=== PATIENT | female | born 1950 | race Caucasian/White ===

== ENCOUNTER 2018-07-12 17:24 | Inpatient (IN) | payer OTHER ==
[2018-07-12] MEDS ORDERED: PANTOPRAZOLE 40 MG INJ ONE ×3 (19:09→22:37)
[2018-07-12] MEDS ORDERED: ONDANSETRON 4 MG/2 ML VIAL ONE (19:09)
--- NOTE | 2018-07-12 19:56 | RAD REPORT ---
EXAM DESCRIPTION: RAD - Chest Single View - 07/12/2018 7:33 pm CLINICAL HISTORY: epigastric pain Chest pain. COMPARISON: CHEST SINGLE VIEW dated 02/22/2011 FINDINGS: Portable technique limits examination quality. The lungs are grossly clear. The heart is normal in size. No displaced fractures.Aortic atheroscleros is. IMPRESSION: No acute intrathoracic process suspected.
[2018-07-12 20:16] LABS: Absolute Lymphocytes (CBC) 2.5 K/uL (0.7-4.9); Absolute Neutrophil 6.6 K/uL (1.8-8.0); Basophils % 0.7 % (0-1.3); Eosinophils % 0.4 % (0-4.4); Hematocrit 37.5 % (36.0-45.0); Lymphocytes % 24.6 % (15.3-44.8); MPV 9.1 fL (7.6-11.3); Monocytes % 9.9 % (3.3-12.3); RBC Red Blood Cell Count 4.39 M/uL (3.86-4.86)
[2018-07-12 20:20] LABS: ALT/SGPT 9 U/L (12-78); AST/SGOT 13 U/L (15-37); Albumin 3.5 g/dL (3.4-5.0); Alkaline Phosphatase 87 U/L (45-117); BUN Blood Urea Nitrogen 27 mg/dL (7-18); Bicarbonate 24 mmol/L (21-32); Bilirubin Direct < 0.1 mg/dL (0-0.2); Bilirubin Total 0.2 mg/dL (0.2-1.0); Glucose Level 97 mg/dL (74-106); Magnesium 2.2 mg/dL (1.8-2.4); Potassium 4.6 mmol/L (3.5-5.1); Protein, Total 7.1 g/dL (6.4-8.2); Sodium Level 145 mmol/L (136-145); Troponin (Emerg Dept Use Only) < 0.02 ng/mL (0.0-0.045)
[2018-07-12] MEDS ORDERED: NA CHLORIDE 0.9% 250 ML ONE (20:20)
[2018-07-12 21:30] LABS: Protime INR 1.19
[2018-07-12] MEDS ORDERED: MAGNE/ALUM HYDROXD 30 ML UCUP ONE (21:55)
[2018-07-12] MEDS ORDERED: LIDOCAINE VISCOUS 2% SOLN 15 ML UDC ONE (21:55)
[2018-07-12 21:56] LABS: Urine Blood NEGATIVE (NEG); Urine Glucose NEGATIVE (NEG); Urine Protein TRACE (NEG); Urine Specific Gravity 1.025 (1.005-1.030); Urine pH 5.5 (5.0-7.0)
[2018-07-12] MEDS ORDERED: HYDROCODONE/APAP 7.5/325 MG TAB ONE (21:59)
--- NOTE | 2018-07-12 22:00 | EDPHYS ---
Physician Documentation [facility] Name: Twyla Shook Age: 68 yrs Sex: Female : 1950 Arrival Date: 07/12/2018 Time: 17:27 Bed 26 Private MD: ED Physician Bill Contreras HPI: 07/12 18:55 This 68 yrs old Female presents to ER via Ambulatory with complaints of cp Bleeding Ulcers. 18:55 The patient presents to the emergency department with rectal bleeding, dark, tarry cp stool. 18:55 Onset: The symptoms/episode began/occurred today. Abdominal pain: described as achy, cp located in the epigastric area, right upper quadrant and left upper quadrant. Historical: - Allergies: 17:46 butorphanol tartrate; aa5 - PMHx: 17:46 Degenerative disc disease; Headaches; GI Bleed; aa5 - PSHx: 17:46 ; Hysterectomy; shoulder; aa5 - Immunization history:: Flu vaccine is not up to date. - Social history:: Smoking status: Patient/guardian denies using tobacco. - Ebola Screening: : No symptoms or risks identified at this time. ROS: 19:00 Constitutional: Negative for body aches, chills, fever, poor PO intake. cp 19:00 Eyes: Negative for injury, pain, redness, and discharge. cp 19:00 ENT: Negative for drainage from ear(s), ear pain, sore throat, difficulty swallowing, difficulty handling secretions. 19:00 Cardiovascular: Negative for chest pain, edema, palpitations. 19:00 Respiratory: Negative for cough, shortness of breath, wheezing. 19:00 Abdomen/GI: Positive for abdominal pain, black/tarry stool, Negative for vomiting, diarrhea, constipation. 19:00 : Negative for urinary symptoms, vaginal bleeding. 19:00 Neuro: Negative for altered mental status, headache, syncope, weakness. 19:00 All other systems are negative. Exam: 19:05 ECG was reviewed by the Attending Physician. cp 19:10 Constitutional: The patient appears in no acute distress, alert, awake, cp non-diaphoretic, non-toxic, well developed, well nourished. 19:10 Head/Face: Normocephalic, atraumatic. Eyes: Pupils equal round and reactive to light, cp extra-ocular motions intact. Lids and lashes normal. Conjunctiva and sclera are non-icteric and not injected. Cornea within normal limits. Periorbital areas with no swelling, redness, or edema. ENT: Nares patent. No nasal discharge, no septal abnormalities noted. Tympanic membranes are normal and external auditory canals are clear. Oropharynx with no redness, swelling, or masses, exudates, or evidence of obstruction, uvula midline. Mucous membranes moist. Chest/axilla: Normal chest wall appearance and motion. Nontender with no deformity. No lesions are appreciated. 19:10 Cardiovascular: Rate: normal, Rhythm: regular, Edema: is not appreciated, JVD: 19:10 Respiratory: the patient does not display signs of respiratory distress, Respirations: normal, no use of accessory muscles, no retractions, no splinting, no tachypnea, Breath sounds: are clear throughout, no decreased breath sounds, no stridor, no wheezing. 19:10 Abdomen/GI: Inspection: abdomen appears normal, Bowel sounds: active, all quadrants, Palpation: soft, in all quadrants, mild abdominal tenderness, in the epigastric area, Rectal exam: Stool: guaiac positive, black. 19:10 Back: pain, is absent, ROM is normal. 19:10 Skin: cellulitis, is not appreciated, no rash present. 19:10 Neuro: Orientation: to person, place \T\ time. Mentation: is normal, Cerebellar function: is grossly normal, Motor: moves all fours, strength is normal, Sensation: is normal. Vital Signs: 17:47 BP 139 / 79; Pulse 93; Resp 16 S; Temp 99.2(O); Pulse Ox 98% on R/A; Weight 58.97 kg aa5 (R); Height 4 ft. 9 in. (144.78 cm) (R); Pain 5/10; 19:05 BP 127 / 76; Pulse 85; Resp 22; Temp 97.8(O); Pulse Ox 99% on R/A; mh5 20:00 BP 135 / 70; Pulse 90; Resp 19; Pulse Ox 99% ; rr5 21:00 BP 145 / 79; Pulse 88; Resp 17; Pulse Ox 98% ; rr5 21:46 BP 150 / 92; Pulse 94; Resp 20; Pulse Ox 99% ; rr5 22:28 BP 113 / 61; Pulse 87; Resp 17; Temp 97.9; Pulse Ox 100% ; Pain 3/10; rr5 22:30 Pain 2/10; jb4 17:47 Body Mass Index 28.13 (58.97 kg, 144.78 cm) aa5 MDM: 18:35 Patient medically screened. cp 19:00 Differential diagnosis: gastritis, hemorrhagic shock, varices. cp 21:58 Data reviewed: vital signs, nurses notes, lab test result(s), EKG, radiologic studies, cp plain films. Test interpretation: by ED physician or midlevel provider: ECG, plain radiologic studies. Physician consultation: Roby Valencia MD was called at 21:55, was contacted at 21:55, regarding admission, to the medical/surgical unit. patient's condition, would like consultation with Dr. Morelos. 07/12 18:44 Order name: Basic Metabolic Panel; Complete Time: 20:38 cp 07/12 20:38 Interpretation: Normal except: CL 114; BUN 27. cp 07/12 18:44 Order name: CBC with Diff; Complete Time: 20:38 cp 07/12 18:44 Order name: LFT's; Complete Time: 20:38 cp 07/12 20:38 Interpretation: Normal except: AST 13; ALT 9; GLOB 3.6; A/G 1.0. cp 07/12 18:44 Order name: Magnesium; Complete Time: 20:38 cp 07/12 18:44 Order name: PT-INR; Complete Time: 21:57 cp 07/12 18:44 Order name: Troponin (emerg Dept Use Only); Complete Time: 20:38 cp 07/12 18:44 Order name: Type And Screen cp 07/12 18:44 Order name: Ptt, Activated; Complete Time: 21:57 cp 07/12 18:44 Order name: Type And Screen cp 07/12 19:19 Order name: XRAY Chest (1 view); Complete Time: 20:38 cp 07/12 21:09 Order name: Urine Dipstick--Ancillary (enter results); Complete Time: 21:57 cm6 07/12 18:44 Order name: EKG; Complete Time: 18:45 cp 07/12 18:44 Order name: Cardiac monitoring; Complete Time: 18:55 cp 07/12 18:44 Order name: EKG - Nurse/Tech; Complete Time: 18:55 cp 07/12 18:44 Order name: IV Saline Lock; Complete Time: 19:50 cp 04 18:44 Order name: Labs collected and sent; Complete Time: 19:50 cp 04 18:44 Order name: O2 Per Protocol; Complete Time: 18:56 cp 07/12 18:44 Order name: O2 Sat Monitoring; Complete Time: 18:56 cp EC:05 Rate is 81 beats/min. Rhythm is regular. UT interval is normal. QRS interval is normal. cp QT interval is normal. T waves are Flattened in lead III. Interpreted by me. Reviewed by me. Administered Medications: 19:35 Drug: Zofran 4 mg Route: IVP; Site: right forearm; rr5 22:25 Follow up: Response: No adverse reaction rr5 19:37 Drug: ProTONIX 40 mg Route: IVP; Site: right forearm; rr5 22:25 Follow up: Response: No adverse reaction rr5 20:10 Drug: ProTONIX 8 mg/hr Route: IV; Rate: 25 ml/hr; Site: right forearm; rr5 22:24 Follow up: Response: No adverse reaction; IV Status: Infusion continued upon admission; rr5 IV Intake: 75ml 21:45 Drug: GI Cocktail without - (Maalox Suspension 30 ml, Lidocaine Liquid 2 % 15 rr5 ml) Route: PO; 22:25 Follow up: Response: No adverse reaction rr5 21:49 Drug: [place] (7.5 mg-325 mg) 1 tabs Route: PO; jb4 22:30 Follow up: Pain 2/10 Adult; Response: No adverse reaction; Pain is decreased jb4 22:30 Drug: ProTONIX 40 mg Route: IVP; Site: right antecubital; jb4 23:18 Follow up: Response: No adverse reaction jb4 Disposition: 07/12/18 22:00 Hospitalization ordered by Roby Valencia for Inpatient Admission. Preliminary diagnosis is Gastrointestinal hemorrhage, unspecified. - Bed requested for Telemetry/MedSurg (Inpatient). - Status is Inpatient Admission. jb4 - Condition is Stable. - Problem is new. - Symptoms have improved. UTI on Admission? No Addendum: 07/16/2018 07:00 Co-signature as Attending Physician, Bill Contreras MD. r n Signatures: Dispatcher [employer] EDMS Bill Contreras MD MD rn Calderon, Audri, RN RN aa5 Brenden Vickers PA PA cp Josey Arteaga, MARIA INES RN cg Wesley Hernandez, MARIA INES RN jb4 Ronak Nails RN RN rr5 Corrections: (The following items were deleted from the chart) 07/12 22:01 22:00 Hospitalization Ordered by Roby Valencia MD for Inpatient Admission. Preliminary cg diagnosis is Gastrointestinal hemorrhage, unspecified. Bed requested for Telemetry/MedSurg (Inpatient). Status is Inpatient Admission. Condition is Stable. Problem is new. Symptoms have improved. UTI on Admission? No. cp 23:18 22:01 07/12/2018 22:00 Hospitalization Ordered by Roby Valencia MD for Inpatient jb4 Admission. Preliminary diagnosis is Gastrointestinal hemorrhage, unspecified. Bed requested for Telemetry/MedSurg (Inpatient). Status is Inpatient Admission. Condition is Stable. Problem is new. Symptoms have improved. UTI on Admission? No. cg
--- NOTE | 2018-07-12 22:00 | ER ---
Nurse's Notes [facility] Name: Twyla Shook Age: 68 yrs Sex: Female : 1950 Arrival Date: 07/12/2018 Time: 17:27 Bed 26 Private MD: Diagnosis: Gastrointestinal hemorrhage, unspecified Presentation: 07/12 17:45 Presenting complaint: Patient states: black stools that began yesterday. Pt reports aa5 generalized weakness that began 1 week ago. Pt states "I feel nauseated and has not eaten much but I have not vomited since last week". Transition of care: patient was not received from another setting of care. Onset of symptoms was July 2018. Risk Assessment: Do you want to hurt yourself or someone else? Patient reports no desire to harm self or others. Initial Sepsis Screen: Does the patient meet any 2 criteria? No. Patient's initial sepsis screen is negative. Does the patient have a suspected source of infection? No. Patient's initial sepsis screen is negative. Care prior to arrival: None. 17:45 Method Of Arrival: Ambulatory aa5 17:45 Acuity: LEE 3 aa5 Historical: - Allergies: 17:46 butorphanol tartrate; aa5 - PMHx: 17:46 Degenerative disc disease; Headaches; GI Bleed; aa5 - PSHx: 17:46 ; Hysterectomy; shoulder; aa5 - Immunization history:: Flu vaccine is not up to date. - Social history:: Smoking status: Patient/guardian denies using tobacco. - Ebola Screening: : No symptoms or risks identified at this time. Screenin:19 Abuse screen: Denies threats or abuse. Denies injuries from another. Nutritional ph screening: No deficits noted. Tuberculosis screening: No symptoms or risk factors identified. Fall Risk None identified. Assessment: 19:00 General: Appears in no apparent distress. comfortable, Behavior is calm, cooperative, rr5 appropriate for age. 19:00 Pain: Complains of pain in back Pain does not radiate. Pain currently is 5 out of 10 on rr5 a pain scale. Quality of pain is described as aching, Pain began gradually, Is intermittent. Neuro: Level of Consciousness is awake, alert, obeys commands, Oriented to person, place, time, situation, Appropriate for age. Cardiovascular: Capillary refill < 3 seconds Patient's skin is warm and dry. Respiratory: Airway is patent Respiratory effort is even, unlabored, Respiratory pattern is regular, symmetrical. GI: Abdomen is round Reports black stool. : No signs and/or symptoms were reported regarding the genitourinary system. EENT: No signs and/or symptoms were reported regarding the EENT system. Derm: Skin is intact, Skin temperature is warm. Musculoskeletal: Circulation, motion, and sensation intact. Capillary refill < 3 seconds, Range of motion: intact in all extremities. 20:00 Reassessment: Patient appears in no apparent distress at this time. Patient is alert, rr5 oriented x 3, equal unlabored respirations, skin warm/dry/pink. Patient states symptoms have improved. 21:00 Reassessment: Patient appears in no apparent distress at this time. Patient is alert, rr5 oriented x 3, equal unlabored respirations, skin warm/dry/pink. awaiting for result.no complaints made. 21:30 Reassessment: Patient appears in no apparent distress at this time. Patient is alert, rr5 oriented x 3, equal unlabored respirations, skin warm/dry/pink. complaining of low back pain. ED provider aware with order made na d carried out. 22:30 Reassessment: Patient appears in no apparent distress at this time. Patient and/or jb4 family updated on plan of care and expected duration. Pain level reassessed. Patient is alert, oriented x 3, equal unlabored respirations, skin warm/dry/pink. Vital Signs: 17:47 BP 139 / 79; Pulse 93; Resp 16 S; Temp 99.2(O); Pulse Ox 98% on R/A; Weight 58.97 kg aa5 (R); Height 4 ft. 9 in. (144.78 cm) (R); Pain 5/10; 19:05 BP 127 / 76; Pulse 85; Resp 22; Temp 97.8(O); Pulse Ox 99% on R/A; mh5 20:00 BP 135 / 70; Pulse 90; Resp 19; Pulse Ox 99% ; rr5 21:00 BP 145 / 79; Pulse 88; Resp 17; Pulse Ox 98% ; rr5 21:46 BP 150 / 92; Pulse 94; Resp 20; Pulse Ox 99% ; rr5 22:28 BP 113 / 61; Pulse 87; Resp 17; Temp 97.9; Pulse Ox 100% ; Pain 3/10; rr5 22:30 Pain 2/10; jb4 17:47 Body Mass Index 28.13 (58.97 kg, 144.78 cm) aa5 ED Course: 17:27 Patient arrived in ED. rg4 17:45 Arm band placed on. aa5 17:46 Triage completed. aa5 18:35 Brenden Vickers PA is PHCP. cp 18:35 Bill Contreras MD is Attending Physician. cp 19:04 Patient has correct armband on for positive identification. Placed in gown. Bed in low mh5 position. Call light in reach. Side rails up X 1. Adult w/ patient. Warm blanket given. front desk monitor on. Pulse ox on. NIBP on. 19:04 EKG done, by ED staff, reviewed by Brenden ZHANG. mh5 19:14 Ronak Nails, RN is Primary Nurse. rr5 19:19 Served as a director of architecture during rectal exam. ph 19:32 X-ray completed. Portable x-ray completed in exam room. Patient tolerated procedure ml well. 19:32 XRAY Chest (1 view) In Process Unspecified. EDMS 19:35 Inserted saline lock: 18 gauge in right forearm, using aseptic technique. Blood rr5 collected. 21:59 Roby Valencia MD is Hospitalizing Provider. cp 22:52 Patient admitted, IV remains in place. jb4 Administered Medications: 19:35 Drug: Zofran 4 mg Route: IVP; Site: right forearm; rr5 22:25 Follow up: Response: No adverse reaction rr5 19:37 Drug: ProTONIX 40 mg Route: IVP; Site: right forearm; rr5 22:25 Follow up: Response: No adverse reaction rr5 20:10 Drug: ProTONIX 8 mg/hr Route: IV; Rate: 25 ml/hr; Site: right forearm; rr5 22:24 Follow up: Response: No adverse reaction; IV Status: Infusion continued upon admission; rr5 IV Intake: 75ml 21:45 Drug: GI Cocktail without - (Maalox Suspension 30 ml, Lidocaine Liquid 2 % 15 rr5 ml) Route: PO; 22:25 Follow up: Response: No adverse reaction rr5 21:49 Drug: [place] (7.5 mg-325 mg) 1 tabs Route: PO; jb4 22:30 Follow up: Pain 2/10 Adult; Response: No adverse reaction; Pain is decreased jb4 22:30 Drug: ProTONIX 40 mg Route: IVP; Site: right antecubital; jb4 23:18 Follow up: Response: No adverse reaction jb4 Intake: 22:24 IV: 75ml; Total: 75ml. rr5 Outcome: 22:00 Decision to Hospitalize by Provider. cp 22:51 Admitted to Tele accompanied by tech, via stretcher, room 406, with chart, Report jb4 called to MARIA INES Carter 22:51 Condition: stable 22:51 Discharge instructions given to patient, Instructed on the need for admit, Demonstrated understanding of instructions. 23:18 Patient left the ED. jb4 Signatures: Dispatcher [employer] Muriel Hernandez Audri, RN RN aa5 Radha Celestin, RN RN Brenden Odom PA PA cp Garcia, Rubi rg4 Wesley Hernandez RN RN jb4 Fatemeh Chappell [facility] Ronak Nails, RN RN rr5
--- NOTE | 2018-07-12 22:02 | P.HP ---
Certification for Inpatient Patient admitted to: Inpatient With expected LOS: >2 Midnights Practitioner: I am a practitioner with admitting privileges, knowledge of patient current condition, hospital course, and medical plan of care. Services: Services provided to patient in accordance with Admission requirements found in Title 42 Section 412.3 of the Code of Federal Regulations Patient History Date of Service: 07/12/18 Reason for admission: GIB History of Present Illness: Ms Shook is a 68 years old woman with history of GIB in 2010, headache, DJD on chronic pain medication who has been feeling weak for the last week. She was also dizzy and nauseated. Today, she start having dark stools and abdominal pain. She states that her symptoms were similar to previous GIB. The patient says as well that has been taking several times a day BC powder (Aspirin) due to her pain. At arrival her BP was 139/79 HR 93. Lab work shows Hgb 12.2 normal WBC count. BUN slightly elevated. Rectal exam showed dark stools guaiac positive. Allergies butorphanol tartrate [From Stadol] Allergy (Intermediate, Verified 08/26/12 23: 04) Rash Home medications list reviewed: Yes - Past Medical/Surgical History -: GIB -: DJD -: headache -: -: Hysterectomy - Family History Family History: Reviewed- Non-Contributory - Social History Smoking Status: Never smoker Alcohol use: Yes CD- Drugs: No Place of Residence: Home Review of Systems 10-point ROS is otherwise unremarkable Physical Examination - Physical Exam General: Alert, In no apparent distress HEENT: Atraumatic, PERRLA, Mucous membr. moist/pink, EOMI, Sclerae nonicteric Neck: Supple, 2+ carotid pulse no bruit, No LAD, Without JVD or thyroid abnormality Respiratory: Clear to auscultation bilaterally, Normal air movement Cardiovascular: Regular rate/rhythm, Normal S1 S2 Gastrointestinal: Normal bowel sounds, Tenderness (mild diffuse tenderness to palpation.) Musculoskeletal: No tenderness Integumentary: No rashes Neurological: Normal speech, Normal strength at 5/5 x4 extr, Normal tone, Normal affect Lymphatics: No axilla or inguinal lymphadenopathy - Studies Laboratory Data (last 24 hrs) 07/12/18 19:35: PT 14.0 H, INR 1.19, APTT 37.6 H 07/12/18 19:35: WBC 10.3, Hgb 12.2, Hct 37.5, Plt Count 411 H 07/12/18 19:35: Sodium 145, Potassium 4.6, BUN 27 H, Creatinine 0.66, Glucose 97 , Magnesium 2.2, Total Bilirubin 0.2, AST 13 L, ALT 9 L, Alkaline Phosphatase 87 Assessment and Plan - Problems (Diagnosis) (1) Gastrointestinal bleed Current Visit: Yes Status: Acute Qualifiers: GI bleed type/associated pathology: melena Qualified Code(s): K92.1 - Melena (2) Chronic pain Current Visit: Yes Status: Acute Qualifiers: Chronic pain type: chronic pain syndrome Qualified Code(s): G89.4 - Chronic pain syndrome - Plan The patient will be admitted to the hospital due to melena, consistent with upper GIB. She is hemodynamically stable. Will order NPO, IV fluids, Protonix drip. The case was discussed with Dr Morelos, who will see the patient in AM. - Advance Directives Does patient have a Living Will: No Does patient have a Durable POA for Healthcare: No - Code Status/Comfort Care Code Status Assessed: Yes Code Status: Full Code
[2018-07-12] MEDS ORDERED: PANTOPRAZOLE INJ 80 MG in NA CHLORIDE 0.9% 250 ML IV SCH (23:25)
[2018-07-12 23:29] VITALS: O2SAT 100
[2018-07-13 01:21] VITALS: BMI 27.3
[2018-07-13] MEDS: NA CHLORIDE 0.9% 1,000 ML IV SCH ×4 (02:29→19:25)
[2018-07-13] MEDS: MORPHINE 2 MG/ML SYR IV PRN ×4 (05:52→22:01)
[2018-07-13 06:18] LABS: Absolute Lymphocytes (CBC) 1.8 K/uL (0.7-4.9); Absolute Monocytes 0.6 K/uL (0.1-1.3); Basophils % 0.9 % (0-1.3); Eosinophils % 0.5 % (0-4.4); Hematocrit 32.4 % (36.0-45.0); Monocytes % 7.6 % (3.3-12.3); RBC Red Blood Cell Count 3.83 M/uL (3.86-4.86)
[2018-07-13 06:32] LABS: ALT/SGPT 10 U/L (12-78); AST/SGOT 11 U/L (15-37); Albumin 3.1 g/dL (3.4-5.0); Alkaline Phosphatase 72 U/L (45-117); BUN Blood Urea Nitrogen 29 mg/dL (7-18); Bicarbonate 25 mmol/L (21-32); Bilirubin Total 0.3 mg/dL (0.2-1.0); Glucose Level 112 mg/dL (74-106); Potassium 3.5 mmol/L (3.5-5.1); Protein, Total 6.4 g/dL (6.4-8.2); Sodium Level 144 mmol/L (136-145)
[2018-07-13] MEDS ORDERED: PANTOPRAZOLE 40 MG INJ ONE (06:41)
[2018-07-13] MEDS ORDERED: NA CHLORIDE 0.9% 250 ML ONE (06:42)
[2018-07-13] MEDS ORDERED: PNEUMOCOCCAL VACCINE 0.5 ML IMVAC ONE (08:00)
[2018-07-13] MEDS: ONDANSETRON 4 MG/2 ML VIAL IV PRN ×2 (09:25→22:06)
[2018-07-13] MEDS: PROMETHAZINE 25 MG/ML VIAL IV PRN ×2 (10:39→18:23)
[2018-07-13 12:11] LABS: Hematocrit 29.2 % (36.0-45.0)
[2018-07-13] MEDS ORDERED: PROPOFOL 200 MG/20 ML VIAL IV ONE (14:31)
[2018-07-13] MEDS ORDERED: LIDOCAINE 1% MPF 5 ML VIAL ONE (14:32)
--- NOTE | 2018-07-13 14:42 | P.PN ---
Subjective Date of Service: 07/13/18 Primary Care Provider: Dr. Benítez([place], [place]); Pain-Dr. Santana Chief Complaint: GIB Subjective: Other (Patient stable this time. No significant vomiting. Patient NPO for possible endoscopy) Physical Examination - Vital Signs Temperature: 98.5 F Blood Pressure: 130/79 Pulse: 122 Respirations: 24 Pulse Ox (%): 98 - Physical Exam General: Alert, In no apparent distress, Oriented x3, Cooperative HEENT: Atraumatic Neck: Supple Respiratory: Clear to auscultation bilaterally, Normal air movement Cardiovascular: Normal pulses, Regular rate/rhythm Gastrointestinal: Normal bowel sounds, Soft and benign, Non-distended Musculoskeletal: No tenderness, No warmth Integumentary: No erythema, No warmth, No cyanosis Neurological: Normal speech, Normal strength at 5/5 x4 extr, Normal tone, Normal affect - Studies Laboratory Data (last 24 hrs) 07/12/18 19:35: PT 14.0 H, INR 1.19, APTT 37.6 H 07/12/18 19:35: WBC 10.3, Hgb 12.2, Hct 37.5, Plt Count 411 H 07/12/18 19:35: Sodium 145, Potassium 4.6, BUN 27 H, Creatinine 0.66, Glucose 97 , Magnesium 2.2, Total Bilirubin 0.2, AST 13 L, ALT 9 L, Alkaline Phosphatase 87 Medications List Reviewed: Yes Assessment & Plan Discharge Plan: Home Plan to discharge in: 48 Hours Physician Review Additional Text: Impression: Melena suspect upper GI bleed with acute anemia Chronic pain Plan: Melena suspect upper GI bleed with acute anemia: Patient remains NPO for endoscopy. GI consulted. Will need to monitor hemoglobin closely. Patient may require blood transfusion if hemoglobin drops significantly. Will continue to monitor and reassess. Await findings from endoscopy. Will provide SCD for DVT prophylaxis. Chronic pain: Patient takes nonsteroidal anti-inflammatory for pain. This will need to be discontinued due to upper GI bleed. Patient also sees pain management. Will continue her other home medication once GI bleed it is stabilize. Time Spent Managing Pts Care (In Minutes): 55
[2018-07-13] MEDS ORDERED: Ringers Lactate 1,000 ML IV ONE (15:18)
--- NOTE | 2018-07-13 15:44 | ENDO RPT ---
[address], [address] EGD PROCEDURE REPORT EXAM DATE: 07/13/2018 PATIENT NAME: Twyla Shook MR#: [id number] BIRTHDATE: 1950 ATTENDING: Marc Morelos Dr STATUS: inpatient - 7 MOTOR BLOCK MECHANIC: Yamileth Capps INDICATIONS: The patient is a 68 yr old Female here for an EGD due to melenic bleeding, hematemesis, and anemia (takes 1-2 BC powders per day for headaches) PROCEDURE PERFORMED: EGD for control of bleeding MEDICATIONS: Per Anesthesia. TOPICAL ANESTHETIC: none CONSENT: The patient understands the risks and benefits of the procedure and understands that these risks include, but are not limited to: sedation, allergic reaction, infection, perforation and/or bleeding. Alternative means of evaluation and treatment include, among others: physical exam, x-rays, and/or surgical intervention. The patient elects to proceed with this endoscopic procedure. DESCRIPTION OF PROCEDURE: During intra-op preparation period all mechanical medical equipment was checked for proper function. Hand hygiene and appropriate measures for infection prevention was taken. Procedure, possible complications, and alternatives including but not limited to the possibility of bleeding, perforation, tear, infection, sepsis, need for surgery, need for blood transfusion, and anesthesia related complications were explained to the patient. After the risks, benefits and alternatives of the procedure were thoroughly explained, Informed consent was verified, confirmed and timeout was successfully executed by the treatment team. The patient was placed in the left lateral position. The patient was anesthetized with topical anesthesia. Through the anesthetized oropharyngeal area, the scope was passed without any difficulty. The Pentax EG-[id number] ([id number]) endoscope was introduced through the mouth and advanced to the second portion of the duodenum. Retroflexed views revealed a small hiatal hernia. The gastroscope was then slowly withdrawn and removed. Multiple (5) ulcers were found in the bulb of the duodenum. Sclerotherapy was performed with absolute alcohol injection. A small hiatal hernia was found Blood was found in the total stomach. Blood was found in the bulb and descending duodenum. ADVERSE EVENTS: There were no complications. IMPRESSIONS: 1. Multiple (5) large 7-12 mm ulcers (one at the apex with slow bleeding, s/p 4 cc Epinephrine 1:10,000 with control of bleeding - not amenable to endoclip therapy) in the bulb of the duodenum 2. Small hiatal hernia 3. Blood with blood clots in the total stomach 4. Blood in the bulb and descending duodenum RECOMMENDATIONS: 1. acid suppression therapy 2. avoid NSAIDS 3. ICU monitoring 4. surgery consult REPEAT EXAM: Marc Morelos Dr eSigned: Marc Morelos Dr 07/13/2018 3:44 PM cc: Sam Staton CPT CODES: ICD9 CODES: PATIENT NAME: Twyla Shook MR#: [id number]
[2018-07-13] MEDS ORDERED: ONDANSETRON 4 MG/2 ML VIAL ONE (15:50)
[2018-07-13] MEDS ORDERED: FENTANYL CITR 100 MCG/2 ML ONE (15:57)
[2018-07-13] MEDS ORDERED: EPINEPHRINE/PF 1 MG/ML AMP ONE (16:41)
[2018-07-13] MEDS: PANTOPRAZOLE INJ 80 MG in NA CHLORIDE 0.9% 250 ML IV SCH (17:20)
[2018-07-13] MEDS ORDERED: CEFTRIAXONE/SWI 1gm 1 GM/10 ML SYR IVP SCH (18:30)
--- NOTE | 2018-07-13 22:14 | P.DS ---
Admission Date: 07/12/18 Discharge Date: 07/13/18 Primary Care Provider: Dr. Benítez([place], [place]); Pain-Dr. Santana Disposition: TRANSFER TO [facility] Discharge Condition: FAIR Reason for Admission: GIB - Problems (1) Gastrointestinal bleed Current Visit: Yes Status: Acute Qualifiers: GI bleed type/associated pathology: melena Qualified Code(s): K92.1 - Melena (2) Chronic pain Current Visit: Yes Status: Acute Qualifiers: Chronic pain type: chronic pain syndrome Qualified Code(s): G89.4 - Chronic pain syndrome Brief History of Present Illness: Ms Shook is a 68 years old woman with history of GIB in 2010, headache, DJD on chronic pain medication who has been feeling weak for the last week. She was also dizzy and nauseated. Today, she start having dark stools and abdominal pain. She states that her symptoms were similar to previous GIB. The patient says as well that has been taking several times a day BC powder (Aspirin) due to her pain. At arrival her BP was 139/79 HR 93. Lab work shows Hgb 12.2 normal WBC count. BUN slightly elevated. Rectal exam showed dark stools guaiac positive. Hospital Course: The patient was admitted to the hospital and kept NPO, started IV fluids and continuous infusion of PPI's. She remain hemodynamically stable. This AM, Dr Morelos (GI) performed an EGD, it was remarkable for 5 duodenal ulcers, some of them with evidence of slow and active bleeding. Schlerotherapy was performed but no endoclip. The patient was also evaluated by Dr Chappell (surgeon) due to high re-bleeding risk. Dr Chappell has recommended to transfer the patient to a tertiary facility for angio-embolization by IR. The patient has been accepted at [facility]. The patient received a total of 2 Units of PRBC's after EGD. She remain hemodynamically stable the whole admission. She is currently in stable condition to be transferred tonight. Vital Signs/Physical Exam: Temp Pulse Resp BP Pulse Ox 100.4 F 91 H 17 148/80 H 100 07/13/18 20:00 07/13/18 21:00 07/13/18 21:00 07/13/18 21:00 07/13/18 21:00 General: Alert, In no apparent distress HEENT: Atraumatic, PERRLA, EOMI Neck: Supple, JVD not distended Respiratory: Clear to auscultation bilaterally, Normal air movement Cardiovascular: Normal S1 S2, No gallops Gastrointestinal: Normal bowel sounds, No tenderness Musculoskeletal: No tenderness Integumentary: No rashes Neurological: Normal speech, Normal tone, Normal affect Lymphatics: No axilla or inguinal lymphadenopathy Laboratory Data at Discharge: WBC 8.5 K/uL (4.3-10.9) D 07/13/18 05:40 Hgb 10.8 g/dL (12.0-15.0) L 07/13/18 18:50 Hct 33.0 % (36.0-45.0) L 07/13/18 18:50 Plt Count 399 K/uL (152-406) 07/13/18 05:40 PT 14.0 SECONDS (9.5-12.5) H 07/12/18 19:35 INR 1.19 07/12/18 19:35 APTT 37.6 SECONDS (24.3-36.9) H 07/12/18 19:35 Sodium 144 mmol/L (136-145) 07/13/18 05:40 Potassium 3.5 mmol/L (3.5-5.1) 07/13/18 05:40 BUN 29 mg/dL (7-18) H 07/13/18 05:40 Creatinine 0.60 mg/dL (0.55-1.3) 07/13/18 05:40 Glucose 112 mg/dL (74-106) H 07/13/18 05:40 Magnesium 2.2 mg/dL (1.8-2.4) 07/12/18 19:35 Total Bilirubin 0.3 mg/dL (0.2-1.0) 07/13/18 05:40 AST 11 U/L (15-37) L 07/13/18 05:40 ALT 10 U/L (12-78) L 07/13/18 05:40 Alkaline Phosphatase 72 U/L (45-117) 07/13/18 05:40 Home Medications: Duloxetine HCl 60 mg PO DAILY 07/13/18 Hydrocodone 10/APAP 325 [[place] 10/325*] 1 tab PO TIDP PRN 07/13/18 Pregabalin [Lyrica*] 50 mg PO TID 07/13/18 Tizanidine [Zanaflex*] 4 mg PO Q12HR 07/13/18 Trazodone [Desyrel*] 100 mg PO BEDTIME 07/13/18 traMADol HCL [Ultram*] 50 mg PO Q12HP PRN 07/13/18 Diet: NPO Activity: Bedrest Time spent managing pt's care (in minutes): 80
[2018-07-13 23:25] LABS: Hematocrit 30.7 % (36.0-45.0)
[2018-07-14 00:12] VITALS: TEMP 99
--- NOTE | 2018-07-14 00:30 | CON ---
Date of Consultation: 07/13/2018 Diagnosis: GI bleed. History Of Present Illness: This is the case of a 68-year-old patient, admitted yesterday to the ICU after having complains of week, dizziness, and nausea. The patient has been having dark stools and abdominal pain. She has a similar episode several years ago. They found 4 ulcers. The patient has a history of chronic pain, so she takes a Vicodin and BC Powder, aspirin. The patient was admitted t o the hospital today this afternoon. She had a GI scope by Dr. Morelos, who called me and told me ángela t he found 4 ulcers in the duodenum. He was able to cauterize them, but no clips. Past Medical History: GI bleed with duodenal ulcers. Surgical History: Includes C-sections x3, hysterectomy. Social History: She does not smoke. She drinks alcohol occasionally. Family History: Noncontributory. Review of Systems: Ten points otherwise unremarkable. Physical Examination: General: The patient is awake and alert. HEENT: Pupils are equal and reactive, anicteric. Neck: Supple. Chest: Clear. Abdomen: Soft and depressible. No guarding or rebound. A midline incision from previous surgeries. Extremities: Good capillary refill. Laboratory Data: Blood work shows hemoglobin of 9.3 with hematocrit 29.2. Yesterday in morning, she had hemoglobin of 10.8 and 32.2. I understand that she got 2 units of blood transfusion. INR is 1. 19. Creatinine is 0.6. BUN is 29. Total bilirubin of 0.3. UA; nitrite negative. Assessment: A 68-year-old patient with a GI bleed, today had endoscopy done with an epinephrine inje cted. Dr. Morelos explained to me he could not put the clips in that area. The patient was brought t o the ICU. Currently, she is hemodynamically stable. I explained to the patient and the patient's f amily the different alternatives that we have for this disease. She was in the past on a medication for ulcers, but she stopped taking any a long time ago as per family. I explained to him and the [facility] doctor, Dr. Staton, the options of embolotherapy. That is as an alternative from just GI clips or cauterization or injection and surgery. I believe we should take advantage of this window of oppo rtunity that she stopped bleeding, she has had endoscopy, she has better hemoglobin, and there is no active GI bleed at least from vomiting and hematemesis or any GI bleed from below active, but we have to take that window to take this patient to a tertiary center higher level of care, where she can marsh ve the option of angiography and possible incision. The surgical options of emergent laparotomy, pos sible resection, and control of the GI bleeding were discussed with the patient with benefits, altern atives, and risks including, but not limited to infection, bleeding, damage to adjacent structures, a nesthesia complication, inability to control the bleeding, CO, even . She also understands even any bleeding is controlled, she still have to look for help to control these chronic ulcers, change in diet, and also alcohol use, and follow recommendations by her GI doctor. Dr. Staton just initiate d the call for transfer at this moment looking for the options that may include an emerging transcath eter arterial embolization if needed. TONY/JEANETTE Voice ID: [id number] Report ID: [id number]
[2018-07-14 01:07] VITALS: BP 137/92
[2018-07-14] MEDS: PANTOPRAZOLE INJ 80 MG in NA CHLORIDE 0.9% 250 ML IV SCH (01:10)
--- NOTE | 2018-07-17 11:24 | EKG ---
Test Date: 2018-07-12 Test Time: 18:57:13 Steward/Stewardess: ZEESHAN MEASUREMENT RESULTS: Intervals: Rate: 81 VA: 142 QRSD: 76 QT: 364 QTc: 422 Newton: P: 51 VA: 142 QRS: -16 T: 26 INTERPRETIVE STATEMENTS: Normal sinus rhythm Normal ECG Compared to ECG 02/22/2011 16:02:26 No significant changes Electronically Signed On 07-13-18 09:52:07 CDT by Reuben Dewitt
== END 2018-07-14 01:20 | disposition short-term general hospital (02) | DRG 379 ==
LOC: ER 17:24 → ERHOLD 22:17 → 4TH 22:52 → 3RD-ICU 07-13 16:43
PROVIDERS: ADMIT Internal Medicine; ATTEND Family Medicine
PROC: 30233N1 Transfusion of Nonautologous Red Blood Cells into Peripheral Vein, Percutaneous Approach (ICD-10-PCS; 2018-07-13)
PROC: 3E0G8TZ Introduction of Destructive Agent into Upper GI, Via Natural or Artificial Opening Endoscopic (ICD-10-PCS; principal; 2018-07-13 14:00)
DX: K26.0 Acute duodenal ulcer with hemorrhage (principal); K92.1 Melena; G89.4 Chronic pain syndrome; K44.9 Diaphragmatic hernia without obstruction or gangrene; D64.9 Anemia, unspecified; M19.90 Unspecified osteoarthritis, unspecified site; R51 Headache
CPT/HCPCS: 36415; 71045; 80048; 80053; 80076; 81003; 83735; 84484; 85014; 85018; 85025; 85610; 85730; 86850; 86900; 86901; 93005; 99285; C9113; J0171; J0696; J2270; J2405; J2550; J2704; J3010; J7030; P9016

== ENCOUNTER 2018-07-19 00:29 | Inpatient (IN) | payer OTHER ==
--- OUTSIDE RECORDS SUMMARY | 2018-07-19 00:32 | XMS REPORT ---
:1950 [facility] Address [address] [place] [address] Dr. Craven[address] [place] [id number] Care Team Providers Name Role Phone Unavailable Unavailable Unavailable Problems This patient has no known problems. Allergies, Adverse Reactions, Alerts This patient has no known allergies or adverse reactions. Medications This patient has no known medications.
[2018-07-19] MEDS ORDERED: MORPHINE 2 MG/ML SYR ONE ×2 (01:42→02:20)
[2018-07-19] MEDS ORDERED: FAMOTIDINE 20 MG/2 ML VIAL IV ONE (01:42)
[2018-07-19] MEDS ORDERED: ONDANSETRON 4 MG/2 ML VIAL ONE ×2 (01:42→03:44)
[2018-07-19] MEDS ORDERED: NA CHLORIDE 0.9% 1,000 ML ONE (01:42)
[2018-07-19 01:45] LABS: Absolute Lymphocytes (CBC) 1.4 K/uL (0.7-4.9); Absolute Monocytes 1.8 K/uL (0.1-1.3); Absolute Neutrophil 14.1 K/uL (1.8-8.0); Basophils % 0.6 % (0-1.3); Hematocrit 33.1 % (36.0-45.0); Lymphocytes % 8.2 % (15.3-44.8); MPV 9.4 fL (7.6-11.3); Monocytes % 10.5 % (3.3-12.3); RBC Red Blood Cell Count 3.81 M/uL (3.86-4.86)
[2018-07-19 01:49] LABS: Protime INR 1.19
[2018-07-19 02:05] LABS: ALT/SGPT 9 U/L (12-78); AST/SGOT 13 U/L (15-37); Albumin 3.1 g/dL (3.4-5.0); Alkaline Phosphatase 101 U/L (45-117); BUN Blood Urea Nitrogen 10 mg/dL (7-18); Bicarbonate 23 mmol/L (21-32); Bilirubin Direct 0.1 mg/dL (0-0.2); Bilirubin Total 0.6 mg/dL (0.2-1.0); Glucose Level 124 mg/dL (74-106); Lipase 68 U/L (73-393); Magnesium 2.1 mg/dL (1.8-2.4); NT PRO-BNP 207 pg/mL (<125); Potassium 4.1 mmol/L (3.5-5.1); Protein, Total 6.8 g/dL (6.4-8.2); Sodium Level 138 mmol/L (136-145); Troponin (Emerg Dept Use Only) < 0.02 ng/mL (0.0-0.045)
[2018-07-19] MEDS ORDERED: VANCOMYCIN 1 GM/VIAL ONE (02:31)
[2018-07-19] MEDS ORDERED: NA CHLORIDE 0.9% 250 ML ONE (02:31)
--- NOTE | 2018-07-19 03:20 | ER ---
Nurse's Notes [facility] Name: Twyla Shook Age: 68 yrs Sex: Female : 1950 Arrival Date: 07/19/2018 Time: 00:30 Bed 23 Private MD: Diagnosis: Phlebitis and thrombophlebitis-superficial upper ext veins;Cellulitis and acute lymphangitis of other parts of limb-left forearm;Anemia, unspecified;Elevated white blood cell count Presentation: 07/19 00:40 Presenting complaint: Patient states: She had IV's in her left arm from hospitalization lp1 on Monday, discharged yesterday and pain to left arm worsening since then; redness, tenderness noted to left AC area. Transition of care: patient was not received from another setting of care. Onset of symptoms was July 19, 2018. Risk Assessment: Do you want to hurt yourself or someone else? Patient reports no desire to harm self or others. Initial Sepsis Screen: Does the patient meet any 2 criteria? No. Patient's initial sepsis screen is negative. Does the patient have a suspected source of infection? No. Patient's initial sepsis screen is negative. Care prior to arrival: None. 00:40 Method Of Arrival: Wheelchair lp1 00:40 Acuity: LEE 3 lp1 Historical: - Allergies: 00:43 butorphanol tartrate; lp1 00:43 Stadol; lp1 - Home Meds: 00:43 Lyrica 50 mg Oral 1 cap [Active]; duloxetine 60 mg Oral cpDR 1 cap once daily [Active]; lp1 trazodone 100 mg Oral tab 1 tab 3 times per day [Active]; tizanidine 4 mg Oral cap 1 cap 3 times per day [Active]; Walnut 10-325 mg Oral tab 1 tab every 8 hrs [Active]; - PMHx: 00:43 Degenerative disc disease; GI Bleed; Headaches; lp1 - PSHx: 00:43 ; Hysterectomy; foot surgery; shoulder surgery; neck surgery; lp1 - Immunization history:: Adult Immunizations up to date. - Social history:: Smoking status: Patient/guardian denies using tobacco. - Ebola Screening: : No symptoms or risks identified at this time. - Family history:: not pertinent. Screenin:43 Abuse screen: Denies threats or abuse. Denies injuries from another. Nutritional lp1 screening: No deficits noted. Tuberculosis screening: No symptoms or risk factors identified. 00:46 Fall Risk None identified. ca1 Assessment: 00:46 General: Appears in no apparent distress. uncomfortable, Behavior is calm, cooperative, ca1 appropriate for age. Pain: Complains of pain in left arm Pain does not radiate. Pain currently is 10 out of 10 on a pain scale. Quality of pain is described as stabbing, Pain began 1 day ago. Neuro: Level of Consciousness is awake, alert, obeys commands, Oriented to person, place, time, situation. Cardiovascular: Heart tones S1 S2 present Capillary refill < 3 seconds Patient's skin is warm and dry. Respiratory: Airway is patent Respiratory effort is even, unlabored, Respiratory pattern is regular, symmetrical, Breath sounds are clear bilaterally. GI: No deficits noted. No signs and/or symptoms were reported involving the gastrointestinal system. : No deficits noted. No signs and/or symptoms were reported regarding the genitourinary system. EENT: No deficits noted. No signs and/or symptoms were reported regarding the EENT system. Derm: Skin is intact, is healthy with good turgor, Skin is pink, warm \T\ dry. Bruising that is bright red, on left antecubital area and dorsal aspect of left forearm. Musculoskeletal: Circulation, motion, and sensation intact. Capillary refill < 3 seconds, Range of motion: limited in left elbow and left wrist Swelling present in left antecubital area, dorsal aspect of left forearm and left wrist. 02:29 Reassessment: Patient appears in no apparent distress at this time. No changes from rv previously documented assessment. Patient and/or family updated on plan of care and expected duration. Pain level reassessed. Patient is alert, oriented x 3, equal unlabored respirations, skin warm/dry/pink. PATIENT IS STILL IN PAIN BUT GETTING BETTER AFTER THE MORPHINE. 03:12 Reassessment: PATIENT CAME BACK FROM ULTRASOUND. rv 03:25 Reassessment: Pt is A\T\O x 4, resp unlabored, moaning, states she has never had this bb much pain before, Dr Burns notified new orders received pt medicated see JUN. 04:10 Reassessment: pt states pain has decreased slightly from 01/17 to 8/10 pt still moaning bb Dr Burns notified new orders received pt medicated see JUN. 04:23 Reassessment: Pt is A\T\O x 4, resp unlabored, states pain is tolerable now 07/18, IV site bb intact, patent with fluids infusing pt notified of ER Hold status. Vital Signs: 00:43 BP 121 / 80; Pulse 117; Resp 18; Temp 98.1(O); Pulse Ox 99% on R/A; Weight 57.15 kg; lp1 Height 4 ft. 8 in. (142.24 cm); Pain 01/17; 01:00 BP 128 / 82 RA; Pulse 117; Resp 17 S; Pulse Ox 100% on R/A; rv 01:44 BP 164 / 96 RL Sitting; Pulse 98; Resp 16 S; Pulse Ox 96% on R/A; rv 03:14 BP 142 / 90 RA; Pulse 111; Resp 16 S; Pulse Ox 98% on R/A; rv 04:24 BP 127 / 77; Pulse 109; Resp 16 S; Temp 98.8(O); Pulse Ox 100% on R/A; Pain 4; bb 00:43 Body Mass Index 28.25 (57.15 kg, 142.24 cm) lp1 ED Course: 00:30 Patient arrived in ED. do 00:41 Triage completed. lp1 00:43 Arm band placed on right wrist. lp1 00:46 Patient has correct armband on for positive identification. Placed in gown. Bed in low ca1 position. Call light in reach. Side rails up X 1. Pulse ox on. NIBP on. Pillow given. 00:53 Brenden Burns MD is Attending Physician. bruno 01:18 Clark Underwood RN is Primary Nurse. rv 01:43 Inserted saline lock: 22 gauge in right forearm, using aseptic technique. Blood rv collected. 01:48 X-ray completed. Portable x-ray completed in exam room. Patient tolerated procedure kw well. 01:49 XRAY Chest (1 view) In Process Unspecified. EDMS 03:04 US Extremity Venous Unilateral Ltd In Process Unspecified. EDMS 03:05 First set of blood cultures drawn by me. rv 03:16 Mary Salas MD is Hospitalizing Provider. bruno 03:45 IV is patent, is intact, with fluids infusing freely. bb 03:47 Patient admitted, IV remains in place. bb 04:24 No provider procedures requiring assistance completed. bb Administered Medications: 01:39 Drug: morphine 2 mg Route: IVP; Site: right forearm; rv 02:12 Follow up: Response: Pain is decreased rv 01:41 Drug: NS 0.9% 1000 ml Route: IV; Rate: 125 ml/hr; Site: right forearm; rv 01:41 Drug: Zofran 4 mg Route: IVP; Site: right forearm; rv 02:13 Follow up: Response: No adverse reaction rv 01:41 Drug: Pepcid 20 mg Route: IVP; Site: right forearm; rv 02:13 Follow up: Response: No adverse reaction rv 02:12 Drug: morphine 2 mg Route: IVP; Site: right forearm; rv 02:29 Follow up: Response: Pain is decreased rv 02:28 Dru grams of (vancoMYCIN 1 grams, NS 0.9% 250 ml) Route: IVPB; Infused Over: 2 hrs; rv Site: right antecubital; 02:30 Follow up: IV INTERRUPTED, TAKEN TO ULTRASOUND. rv 02:30 Follow up: IV Pause: 07/19/2018 02:30; IV Pause Reason: Patient to Ultrasound rv 05:30 Follow up: IV Status: Completed infusion; IV Intake: 250ml bb 03:43 Drug: Lovenox 40 mg Route: Sub-Q; Site: abdomen; bb 04:21 Follow up: Response: No adverse reaction bb 03:43 Drug: Dilaudid 0.5 mg Route: IVP; Site: right forearm; bb 04:21 Follow up: Response: No adverse reaction; Pain is decreased bb 03:43 Drug: Zofran 4 mg Route: IVP; Site: right forearm; bb 04:21 Follow up: Response: No adverse reaction bb 04:10 Drug: Dilaudid 0.5 mg Route: IVP; Site: right antecubital; bb 04:21 Follow up: Response: Pain is decreased bb 05:31 Drug: Zosyn 3.375 grams Route: IVPB; Infused Over: 60 mins; Site: right forearm; bb 06:48 Follow up: IV Status: Completed infusion; IV Intake: 100ml bb Intake: 05:30 IV: 250ml; Total: 250ml. bb 06:48 IV: 100ml; Total: 350ml. bb Outcome: 03:20 Decision to Hospitalize by Provider. [facility] 03:45 Instructed on the need for admit, pt verbalized understanding of and agrees to plan of bb care pt to be admitted for further evaluation and treatment 04:25 Admitted to ER Hold. Please see [facility] for further documentation. 04:25 Condition: stable 08:07 Patient left the ED. Signatures: Dispatcher [employer] EDMS Brenden Burns MD MD cha Ballard, Brenda RN RN Edilia Bagley Laura, RN RN lp1 Suni Bob Heather, RN RN Clark Underwood RN RN rv Kaley Sherwood RN RN ca1
--- NOTE | 2018-07-19 03:21 | EDPHYS ---
Physician Documentation [facility] Name: Twyla Shook Age: 68 yrs Sex: Female : 1950 Arrival Date: 07/19/2018 Time: 00:30 Bed 23 Private MD: ED Physician Brenden Burns HPI: 07/19 01:18 This 68 yrs old Female presents to ER via Wheelchair with complaints of Arm bruno Pain. 01:18 The patient or guardian complains of decreased range of motion. The complaints affect bruno the left antecubital area, dorsal aspect of left forearm, left wrist and left hand. Context: The problem was sustained at the hospital. Onset: The symptoms/episode began/occurred 2 day(s) ago. Treatment prior to arrival includes: no previous treatment. Modifying factors: The symptoms are alleviated by remaining still, the symptoms are aggravated by movement, bending arm. Modifying factors: The symptoms are alleviated by. Associated signs and symptoms: The patient has no apparent associated signs or symptoms. Severity of symptoms: At their worst the symptoms were moderate, severe, in the emergency department the symptoms are unchanged. The patient has not experienced similar symptoms in the past. Historical: - Allergies: 00:43 butorphanol tartrate; lp1 00:43 Stadol; lp1 - Home Meds: 00:43 Lyrica 50 mg Oral 1 cap [Active]; duloxetine 60 mg Oral cpDR 1 cap once daily [Active]; lp1 trazodone 100 mg Oral tab 1 tab 3 times per day [Active]; tizanidine 4 mg Oral cap 1 cap 3 times per day [Active]; [place] 10-325 mg Oral tab 1 tab every 8 hrs [Active]; - PMHx: 00:43 Degenerative disc disease; GI Bleed; Headaches; lp1 - PSHx: 00:43 ; Hysterectomy; foot surgery; shoulder surgery; neck surgery; lp1 - Immunization history:: Adult Immunizations up to date. - Social history:: Smoking status: Patient/guardian denies using tobacco. - Ebola Screening: : No symptoms or risks identified at this time. - Family history:: not pertinent. ROS: 01:18 Constitutional: Negative for fever, chills, and weight loss, Eyes: Negative for injury, bruno pain, redness, and discharge, ENT: Negative for injury, pain, and discharge, Neck: Negative for injury, pain, and swelling, Cardiovascular: Negative for chest pain, palpitations, and edema, Respiratory: Negative for shortness of breath, cough, wheezing, and pleuritic chest pain, Abdomen/GI: Negative for abdominal pain, nausea, vomiting, diarrhea, and constipation, Back: Negative for injury and pain, : Negative for injury, bleeding, discharge, and swelling, Skin: Negative for injury, rash, and discoloration, Neuro: Negative for headache, weakness, numbness, tingling, and seizure, Psych: Negative for depression, anxiety, suicide ideation, homicidal ideation, and hallucinations, Allergy/Immunology: Negative for hives, rash, and allergies, Endocrine: Negative for neck swelling, polydipsia, polyuria, polyphagia, and marked weight changes, Hematologic/Lymphatic: Negative for swollen nodes, abnormal bleeding, and unusual bruising. 01:18 MS/extremity: Positive for injury or acute deformity, decreased range of motion, pain, swelling, tenderness, of the left hand and left elbow and dorsal aspect of left forearm. Exam: 01:18 Constitutional: This is a well developed, well nourished patient who is awake, alert, bruno and in no acute distress. Head/Face: Normocephalic, atraumatic. Eyes: Pupils equal round and reactive to light, extra-ocular motions intact. Lids and lashes normal. Conjunctiva and sclera are non-icteric and not injected. Cornea within normal limits. Periorbital areas with no swelling, redness, or edema. ENT: Nares patent. No nasal discharge, no septal abnormalities noted. Tympanic membranes are normal and external auditory canals are clear. Oropharynx with no redness, swelling, or masses, exudates, or evidence of obstruction, uvula midline. Mucous membranes moist. Neck: Trachea midline, no thyromegaly or masses palpated, and no cervical lymphadenopathy. Supple, full range of motion without nuchal rigidity, or vertebral point tenderness. No Meningismus. Chest/axilla: Normal chest wall appearance and motion. Nontender with no deformity. No lesions are appreciated. Cardiovascular: Regular rate and rhythm with a normal S1 and S2. No gallops, murmurs, or rubs. Normal PMI, no JVD. No pulse deficits. Respiratory: Lungs have equal breath sounds bilaterally, clear to auscultation and percussion. No rales, rhonchi or wheezes noted. No increased work of breathing, no retractions or nasal flaring. Abdomen/GI: Soft, non-tender, with normal bowel sounds. No distension or tympany. No guarding or rebound. No evidence of tenderness throughout. Back: No spinal tenderness. No costovertebral tenderness. Full range of motion. Female : Normal external genitalia. Skin: Warm, dry with normal turgor. Normal color with no rashes, no lesions, and no evidence of cellulitis. Neuro: Awake and alert, GCS 15, oriented to person, place, time, and situation. Cranial nerves II-XII grossly intact. Motor strength 5/5 in all extremities. Sensory grossly intact. Cerebellar exam normal. Normal gait. Psych: Awake, alert, with orientation to person, place and time. Behavior, mood, and affect are within normal limits. 01:18 Musculoskeletal/extremity: Extremities: decreased ROM, erythema, pain, ROM: limited active range of motion, limited passive range of motion, Circulation is intact in all extremities. Sensation intact. DVT Exam: negative Homans' sign noted on exam, no appreciated bluish discoloration, pain, swelling, tenderness, erythema, increased warmth, that is moderate, of the left arm. Vital Signs: 00:43 BP 121 / 80; Pulse 117; Resp 18; Temp 98.1(O); Pulse Ox 99% on R/A; Weight 57.15 kg; lp1 Height 4 ft. 8 in. (142.24 cm); Pain 10/10; 01:00 BP 128 / 82 RA; Pulse 117; Resp 17 S; Pulse Ox 100% on R/A; rv 01:44 BP 164 / 96 RL Sitting; Pulse 98; Resp 16 S; Pulse Ox 96% on R/A; rv 03:14 BP 142 / 90 RA; Pulse 111; Resp 16 S; Pulse Ox 98% on R/A; rv 04:24 BP 127 / 77; Pulse 109; Resp 16 S; Temp 98.8(O); Pulse Ox 100% on R/A; Pain 4/10; bb 00:43 Body Mass Index 28.25 (57.15 kg, 142.24 cm) lp1 MDM: 00:53 Patient medically screened. [facility] 01:23 Data reviewed: vital signs, nurses notes, lab test result(s), EKG, radiologic studies, bruno doppler. 07/19 01:18 Order name: Basic Metabolic Panel; Complete Time: 02:14 [facility] 07/19 01:18 Order name: CBC with Diff; Complete Time: 02:14 [facility] 07/19 01:18 Order name: LFT's; Complete Time: 02:14 [facility] 07/19 01:18 Order name: Magnesium; Complete Time: 02:14 [facility] 07/19 01:18 Order name: NT PRO-BNP; Complete Time: 02:14 [facility] 07/19 01:18 Order name: PT-INR; Complete Time: 02:14 [facility] 07/19 01:18 Order name: Troponin (emerg Dept Use Only); Complete Time: 02:14 [facility] 07/19 01:18 Order name: XRAY Chest (1 view) [facility] 07/19 01:18 Order name: US Extremity Venous Unilateral Ltd 07/19 01:18 Order name: Type And Screen 07/19 01:18 Order name: Lipase; Complete Time: 02:14 [facility] 07/19 02:36 Order name: Blood Culture Adult (2) 07/19 01:18 Order name: EKG; Complete Time: 01:19 [facility] 07/19 01:18 Order name: Cardiac monitoring; Complete Time: 01:42 [facility] 07/19 01:18 Order name: EKG - Nurse/Tech; Complete Time: 01:42 [facility] 07/19 01:18 Order name: IV Saline Lock; Complete Time: 01:42 [facility] 07/19 01:18 Order name: Labs collected and sent; Complete Time: 01:42 [facility] 07/19 01:18 Order name: O2 Per Protocol; Complete Time: 01:42 [facility] 07/19 01:18 Order name: O2 Sat Monitoring; Complete Time: 01:42 [facility] 07/19 03:15 Order name: Misc. Order: moist warm compresses; Complete Time: 03:43 [facility] Administered Medications: 01:39 Drug: morphine 2 mg Route: IVP; Site: right forearm; rv 02:12 Follow up: Response: Pain is decreased rv 01:41 Drug: NS 0.9% 1000 ml Route: IV; Rate: 125 ml/hr; Site: right forearm; rv 01:41 Drug: Zofran 4 mg Route: IVP; Site: right forearm; rv 02:13 Follow up: Response: No adverse reaction rv 01:41 Drug: Pepcid 20 mg Route: IVP; Site: right forearm; rv 02:13 Follow up: Response: No adverse reaction rv 02:12 Drug: morphine 2 mg Route: IVP; Site: right forearm; rv 02:29 Follow up: Response: Pain is decreased rv 02:28 Dru grams of (vancoMYCIN 1 grams, NS 0.9% 250 ml) Route: IVPB; Infused Over: 2 hrs; rv Site: right antecubital; 02:30 Follow up: IV INTERRUPTED, TAKEN TO ULTRASOUND. rv 02:30 Follow up: IV Pause: 07/19/2018 02:30; IV Pause Reason: Patient to Ultrasound rv 05:30 Follow up: IV Status: Completed infusion; IV Intake: 250ml bb 03:43 Drug: Lovenox 40 mg Route: Sub-Q; Site: abdomen; bb 04:21 Follow up: Response: No adverse reaction bb 03:43 Drug: Dilaudid 0.5 mg Route: IVP; Site: right forearm; bb 04:21 Follow up: Response: No adverse reaction; Pain is decreased bb 03:43 Drug: Zofran 4 mg Route: IVP; Site: right forearm; bb 04:21 Follow up: Response: No adverse reaction bb 04:10 Drug: Dilaudid 0.5 mg Route: IVP; Site: right antecubital; bb 04:21 Follow up: Response: Pain is decreased bb 05:31 Drug: Zosyn 3.375 grams Route: IVPB; Infused Over: 60 mins; Site: right forearm; bb 06:48 Follow up: IV Status: Completed infusion; IV Intake: 100ml bb Disposition: 07/19/18 03:20 Hospitalization ordered by Mary Salas for Inpatient Admission. Preliminary diagnosis are Phlebitis and thrombophlebitis - superficial upper ext veins, Cellulitis and acute lymphangitis of other parts of limb - left forearm, Anemia, unspecified, Elevated white blood cell count. - Bed requested for Telemetry/MedSurg (Inpatient). - Status is Inpatient Admission. hb - Condition is Stable. - Problem is new. - Symptoms have improved. UTI on Admission? No Signatures: Dispatcher [employer] EDMS Dara Loya RN RN mw Anderson, Corey, MD MD cha Ballard, Brenda RN RN bb Bessie Marks, RN RN lp1 Claire Barber, RN RN hb Clark Underwood, RN RN rv Corrections: (The following items were deleted from the chart) 04:02 03:20 Hospitalization Ordered by Mary Salas MD for Inpatient Admission. Preliminary bb diagnosis is Phlebitis and thrombophlebitis - superficial upper ext veins; Cellulitis and acute lymphangitis of other parts of limb - left forearm; Anemia, unspecified; Elevated white blood cell count. Bed requested for Telemetry/MedSurg (Inpatient). Status is Inpatient Admission. Condition is Stable. Problem is new. Symptoms have improved. UTI on Admission? No. bruno 05:35 04:02 07/19/2018 03:20 Hospitalization Ordered by Mary Salas MD for Inpatient mw Admission. Preliminary diagnosis is Phlebitis and thrombophlebitis - superficial upper ext veins; Cellulitis and acute lymphangitis of other parts of limb - left forearm; Anemia, unspecified; Elevated white blood cell count. Bed requested for [facility] ER HOLD. Status is Inpatient Admission. Condition is Stable. Problem is new. Symptoms have improved. UTI on Admission? No. bb 08:07 05:35 07/19/2018 03:20 Hospitalization Ordered by Mary Salas MD for Inpatient hb Admission. Preliminary diagnosis is Phlebitis and thrombophlebitis - superficial upper ext veins; Cellulitis and acute lymphangitis of other parts of limb - left forearm; Anemia, unspecified; Elevated white blood cell count. Bed requested for Telemetry/MedSurg (Inpatient). Status is Inpatient Admission. Condition is Stable. Problem is new. Symptoms have improved. UTI on Admission? No. mw
[2018-07-19] MEDS ORDERED: HYDROMORPHONE HCL 0.5 MG/0.5 ML INJ ONE ×2 (03:44→04:24)
[2018-07-19] MEDS ORDERED: ENOXAPARIN 40 MG/0.4 ML SQ ONE (03:50)
[2018-07-19] MEDS ORDERED: ONDANSETRON 4 MG/2 ML VIAL IV PRN (05:28)
[2018-07-19] MEDS ORDERED: PIPER/TAZO/NS 3.375gm 3.375 GM/100 ML BAG ONE (05:44)
[2018-07-19 05:45] VITALS: BMI 28.2
[2018-07-19] MEDS ORDERED: Levofloxacin500mg IV 500 MG/100 ML BAG IV SCH (06:00)
[2018-07-19] MEDS: MORPHINE 4 MG/ML SYR IV PRN ×3 (06:29→14:45)
[2018-07-19] MEDS ORDERED: MORPHINE 4 MG/ML SYR ONE (06:44)
--- NOTE | 2018-07-19 08:06 | RAD REPORT ---
EXAM DESCRIPTION: US - Extremity Venous Uni Ltd - 07/19/2018 3:04 am CLINICAL HISTORY: PAIN Arm pain and swelling COMPARISON: No comparisons FINDINGS: Left upper extremity venous system was interrogated with Doppler technique. Partial thromb us is present in the antecubital vein and distal basilic vein. Elsewhere, no DVT seen. IMPRESSION: Partial thrombus in the antecubital vein and distal basilic vein noted. No additional DV T evident.
[2018-07-19] MEDS: ACETAMINOPHEN 500 MG TAB PO PRN ×2 (08:38→16:21)
--- NOTE | 2018-07-19 08:59 | RAD REPORT ---
EXAM DESCRIPTION: RAD - Chest Single View - 07/19/2018 1:49 am CLINICAL HISTORY: COUGH Chest pain. COMPARISON: Chest Single View dated 07/12/2018; CHEST SINGLE VIEW dated 02/22/2011 FINDINGS: Portable technique limits examination quality. The lungs are grossly clear. The heart is normal in size. No displaced fractures.Hardware plate in th e cervical spine noted. IMPRESSION: No acute intrathoracic process suspected.
[2018-07-19] MEDS: PANTOPRAZOLE 40 MG INJ IVP SCH ×2 (09:27→20:46)
[2018-07-19] MEDS: SODIUM CHLORIDE 0.9% 10ML INJ IV PRN (09:28)
--- NOTE | 2018-07-19 13:16 | RAD REPORT ---
EXAM DESCRIPTION: RAD - Elbow Left 2 View - 07/19/2018 1:06 pm CLINICAL HISTORY: Left elbow pain and swelling FINDINGS: No fracture or dislocation is seen. No bony destructive lesions seen. Mild joint space narrowing
[2018-07-19] MEDS ORDERED: VANCOMYCIN/NS 1 gm 1 GM/250 ML BAG IVPB SCH (20:00)
--- NOTE | 2018-07-19 20:11 | P.HP ---
Certification for Inpatient Patient admitted to: Inpatient With expected LOS: >2 Midnights Patient will require the following post-hospital care: None Practitioner: I am a practitioner with admitting privileges, knowledge of patient current condition, hospital course, and medical plan of care. Services: Services provided to patient in accordance with Admission requirements found in Title 42 Section 412.3 of the Code of Federal Regulations Patient History Date of Service: 07/19/18 Reason for admission: thrombophlebitis/cellulitis in a patient with GI bleeding History of Present Illness: Patient is a 68-year-old female who was in the hospital about a week and a half ago for GI bleeding. She had a ulcer with an art artery exposed and required clipping. Those concerned it was continued bleeding so she was transferred to [place] but she did not require surgery. She came to our hospital with cellulitis of the left upper extremity. She states she had an IV in that arm but she does remember if she had a potassium or another medication through there. She did get Phenergan to the IV while in the hospital. At this time she looks like she has a thrombophlebitis secondary to a peripheral IV insertion. But she has developed thrombophlebitis in that vein. She could develop thrombosis. She is not a good candidate for blood thinners or anti- inflammatories. We will need to do supportive care with warm compressors at this time and continue with IV antibiotics. She will be admitted for further treatment. Allergies butorphanol tartrate [From Stadol] Allergy (Intermediate, Verified 07/13/18 00: 44) Rash Home Medications: Duloxetine HCl 60 mg PO DAILY 07/13/18 Hydrocodone 10/APAP 325 [[place] 10/325*] 1 tab PO TIDP PRN 07/13/18 Pregabalin [Lyrica*] 50 mg PO TID 07/13/18 Tizanidine [Zanaflex*] 4 mg PO Q12HR 07/13/18 Trazodone [Desyrel*] 100 mg PO BEDTIME 07/13/18 - Past Medical/Surgical History Has patient received pneumonia vaccine in the past: Yes Diabetic: No -: GI Bleed -: MRS -: Digenerative disc disease -: Headaches -: x3 -: Hysterectomy -: left heel sx due to spurs -: left sx due to spurs -: neck sx - Family History Mother Medical History: Hypertension, Cancer Father Medical History: Hypertension - Social History Smoking Status: Never smoker Alcohol use: No CD- Drugs: No Caffeine use: Yes Place of Residence: Home Review of Systems 10-point ROS is otherwise unremarkable Physical Examination - Vital Signs Temperature: 98 F Blood Pressure: 145/73 Pulse: 104 Respirations: 18 Pulse Ox (%): 95 - Physical Exam General: Alert, In no apparent distress, Oriented x3 HEENT: Atraumatic, PERRLA, Mucous membr. moist/pink, EOMI, Sclerae nonicteric Neck: Supple, 2+ carotid pulse no bruit, No LAD, Without JVD or thyroid abnormality Respiratory: Clear to auscultation bilaterally, Normal air movement Cardiovascular: Regular rate/rhythm, Normal S1 S2, No murmurs Gastrointestinal: Normal bowel sounds, Soft and benign, Non-distended, No tenderness Musculoskeletal: No clubbing, No swelling, No tenderness Integumentary: Tenderness/swelling, Erythema, Warmth Neurological: Normal gait, Normal speech, Normal strength at 5/5 x4 extr, Normal tone, Sensation intact, Cranial nerves 3-12 intact, Normal affect Lymphatics: No axilla or inguinal lymphadenopathy - Studies Laboratory Data (last 24 hrs) 07/19/18 01:30: PT 14.0 H, INR 1.19 07/19/18 01:30: WBC 17.4 H D, Hgb 10.9 L, Hct 33.1 L, Plt Count 384 07/19/18 01:30: Sodium 138, Potassium 4.1, BUN 10, Creatinine 0.62, Glucose 124 H, Magnesium 2.1, Total Bilirubin 0.6, AST 13 L, ALT 9 L, Alkaline Phosphatase 101, Lipase 68 L Microbiology Data (last 24 hrs): 07/19/18 03:05 Blood - Blood Anaerobic Blood Culture - Final Assessment & Plan - Problems (Diagnosis) (1) Thrombophlebitis arm Current Visit: Yes Status: Acute (2) Cellulitis of left upper extremity Current Visit: Yes Status: Acute (3) Gastrointestinal bleed Current Visit: No Status: Acute Qualifiers: - Plan Plan: 1. Supportive care with warm compressor 2. Cannot give her anti-inflammatory her anticoagulation because of her recent GI bleeding and she had a clipping of a gastric duodenal ulcer with exposed the artery. 3. Serial H&Hs and monitor white blood cell count closely 4. Continue with IV antibiotics 5. GI DVT prophylaxis Discharge Plan: Home Plan to discharge in: Greater than 2 days - Advance Directives Does patient have a Living Will: No Does patient have a Durable POA for Healthcare: No - Code Status/Comfort Care Code Status Assessed: Yes Code Status: Full Code Critical Care: No Time Spent Managing PTS Care (In Minutes): 45
[2018-07-19] MEDS: PREGABALIN 50 MG CAP PO SCH (20:45)
[2018-07-19] MEDS: DOXYCYCLINE 100 MG in NA CHLORIDE 0.9% 100 ML IVPB SCH (20:46)
[2018-07-19] MEDS: HYDROCODONE/APAP 10/325 TAB PO PRN (20:46)
[2018-07-20] MEDS: MORPHINE 4 MG/ML SYR IV PRN ×3 (01:07→21:00)
[2018-07-20] MEDS: HYDROCODONE/APAP 10/325 TAB PO PRN ×2 (04:55→14:48)
[2018-07-20 04:56] LABS: Absolute Lymphocytes (CBC) 1.7 K/uL (0.7-4.9); Absolute Monocytes 1.5 K/uL (0.1-1.3); Absolute Neutrophil 7.6 K/uL (1.8-8.0); Basophils % 0.3 % (0-1.3); Eosinophils % 0.3 % (0-4.4); Hematocrit 30.2 % (36.0-45.0); MPV 9.3 fL (7.6-11.3); Monocytes % 13.5 % (3.3-12.3); RBC Red Blood Cell Count 3.45 M/uL (3.86-4.86)
[2018-07-20 04:59] LABS: BUN Blood Urea Nitrogen 7 mg/dL (7-18); Bicarbonate 30 mmol/L (21-32); Glucose Level 103 mg/dL (74-106); Potassium 3.6 mmol/L (3.5-5.1); Sodium Level 143 mmol/L (136-145)
[2018-07-20] MEDS: DULOXETINE 30 MG CAP PO SCH (08:48)
[2018-07-20] MEDS: PANTOPRAZOLE 40 MG INJ IVP SCH ×2 (08:48→20:25)
[2018-07-20] MEDS: DOXYCYCLINE 100 MG in NA CHLORIDE 0.9% 100 ML IVPB SCH ×2 (08:48→20:46)
[2018-07-20] MEDS: PREGABALIN 50 MG CAP PO SCH ×3 (08:48→20:27)
[2018-07-20] MEDS ORDERED: HOME MED 1 EA UNK (Duloxetine Hcl [Duloxetine Hcl] 60 MG) PO SCH (09:00)
--- NOTE | 2018-07-20 13:03 | P.PN ---
Subjective Date of Service: 07/20/18 Chief Complaint: thrombophlebitis/cellulitis in a patient with GI bleeding Subjective: Tolerating diet, Improving, Doing well, Other (Denies having fever or chills.) Review of Systems 10-point ROS is otherwise unremarkable Physical Examination - Vital Signs Temperature: 97.9 F Blood Pressure: 111/59 Pulse: 100 Respirations: 16 Pulse Ox (%): 98 - Physical Exam General: Alert, In no apparent distress HEENT: Atraumatic, PERRLA, EOMI Neck: Supple, JVD not distended Respiratory: Clear to auscultation bilaterally, Normal air movement Cardiovascular: Regular rate/rhythm, Normal S1 S2 Gastrointestinal: Normal bowel sounds, No tenderness Musculoskeletal: No tenderness Integumentary: Other (Thrombophlebitis of the left arm. Swelling better than before. ) Neurological: Normal speech, Normal tone, Normal affect Lymphatics: No axilla or inguinal lymphadenopathy - Studies Microbiology Data (last 24 hrs): 07/19/18 03:05 Blood - Blood Anaerobic Blood Culture - Final Medications List Reviewed: Yes Assessment And Plan - Current Problems (Diagnosis) (1) Thrombophlebitis arm Current Visit: Yes Status: Acute Plan: Thrombophlebitis of the left arm with Cellulites as well. 2.2 to Recent IV line in that arm -IV doxycycline 100mg BID for now -Blood culture collected pending results -Carlos Wrap and Elevation. -Pt advice against Electric blanket use on the arm (2) Cellulitis of left upper extremity Current Visit: Yes Status: Acute Plan: See # 1 (3) Gastrointestinal bleed Current Visit: No Status: Chronic Plan: h/o GI bleed with Recent Clipping during the last hospital stay. -Hgb Stable for now Qualifiers: GI bleed type/associated pathology: gastrointestinal hemorrhage with hematemesis Qualified Code(s): K92.0 - Hematemesis - Plan Pending Clinical Improvement. Will continue with IV abx and RICE therapy. Monitor for next 24hrs if improvement than consider DC Discharge Plan: Home Plan to discharge in: Greater than 2 days - Code Status/Comfort Care Code Status Assessed: Yes Critical Care: No
[2018-07-20] MEDS: SODIUM CHLORIDE 0.9% 10ML INJ IV PRN (20:25)
[2018-07-20 22:45] VITALS: O2SAT 99
[2018-07-21] MEDS: HYDROCODONE/APAP 10/325 TAB PO PRN ×2 (00:50→08:56)
[2018-07-21] MEDS: MORPHINE 4 MG/ML SYR IV PRN ×2 (05:24→12:05)
[2018-07-21] MEDS: DULOXETINE 30 MG CAP PO SCH (08:56)
[2018-07-21] MEDS: PREGABALIN 50 MG CAP PO SCH (08:57)
[2018-07-21] MEDS: DOXYCYCLINE 100 MG in NA CHLORIDE 0.9% 100 ML IVPB SCH (08:58)
[2018-07-21] MEDS: PANTOPRAZOLE 40 MG INJ IVP SCH (08:58)
[2018-07-21] MEDS: SODIUM CHLORIDE 0.9% 10ML INJ IV PRN (09:00)
[2018-07-21 09:46] VITALS: TEMP 97.7
[2018-07-21] MEDS ORDERED: NA CHLORIDE 0.9% 50 ML ONE (12:43)
--- NOTE | 2018-07-21 14:07 | P.DS ---
Admission Date: 07/19/18 Discharge Date: 07/21/18 Disposition: ROUTINE DISCHARGE Discharge Condition: GOOD Reason for Admission: thrombophlebitis/cellulitis in a patient with GI bleeding Consultations: - Problems (1) Thrombophlebitis arm Current Visit: Yes Status: Acute (2) Cellulitis of left upper extremity Current Visit: Yes Status: Acute (3) Gastrointestinal bleed Current Visit: No Status: Chronic Qualifiers: GI bleed type/associated pathology: gastrointestinal hemorrhage with hematemesis Qualified Code(s): K92.0 - Hematemesis Brief History of Present Illness: Patient is a 68-year-old female who was in the hospital about a week and a half ago for GI bleeding. She had a ulcer with an art artery exposed and required clipping. Those concerned it was continued bleeding so she was transferred to [place] but she did not require surgery. She came to our hospital with cellulitis of the left upper extremity. She states she had an IV in that arm but she does remember if she had a potassium or another medication through there. She did get Phenergan to the IV while in the hospital. At this time she looks like she has a thrombophlebitis secondary to a peripheral IV insertion. But she has developed thrombophlebitis in that vein. She could develop thrombosis. She is not a good candidate for blood thinners or anti- inflammatories. We will need to do supportive care with warm compressors at this time and continue with IV antibiotics. She will be admitted for further treatment. Hospital Course: Overall during the hospital stay patient main stable Patient was admitted to the hospital for thrombophlebitis on the left arm after being recently hospitalized. Patient was started on IV Levaquin and vancomycin. Blood culture and wound cultures were collected. Both of which remained negative in 24 hr. Medication were switched to IV doxycycline. Patient had marked improvement in her symptoms. Patient was also educated extensively on elevating the extremity along with wrapping. Again patient had marked improvement after AV antibiotics and wrapping the extremity was at that time patient was discharged home under stable condition was given prescription for oral doxycycline to take home. Patient was also asked to follow up with primary care provider about 1-2 days post discharge. Vital Signs/Physical Exam: Temp Pulse Resp BP Pulse Ox 97.7 F 77 16 130/55 L 99 07/21/18 08:00 07/21/18 08:00 07/21/18 08:00 07/21/18 08:00 07/21/18 08:00 General: Alert, In no apparent distress HEENT: Atraumatic, PERRLA, EOMI Neck: Supple, JVD not distended Respiratory: Clear to auscultation bilaterally, Normal air movement Cardiovascular: Regular rate/rhythm, Normal S1 S2 Gastrointestinal: Normal bowel sounds, No tenderness Musculoskeletal: No tenderness Integumentary: Rash(es), Tenderness/swelling (Improved ) Neurological: Normal speech, Normal tone, Normal affect Lymphatics: No axilla or inguinal lymphadenopathy Laboratory Data at Discharge: WBC 10.9 K/uL (4.3-10.9) D 07/20/18 04:21 Hgb 10.0 g/dL (12.0-15.0) L 07/20/18 04:21 Hct 30.2 % (36.0-45.0) L 07/20/18 04:21 Plt Count 379 K/uL (152-406) 07/20/18 04:21 PT 14.0 SECONDS (9.5-12.5) H 07/19/18 01:30 INR 1.19 07/19/18 01:30 Sodium 143 mmol/L (136-145) 07/20/18 04:21 Potassium 3.6 mmol/L (3.5-5.1) 07/20/18 04:21 BUN 7 mg/dL (7-18) 07/20/18 04:21 Creatinine 0.58 mg/dL (0.55-1.3) 07/20/18 04:21 Glucose 103 mg/dL (74-106) 07/20/18 04:21 Magnesium 2.1 mg/dL (1.8-2.4) 07/19/18 01:30 Total Bilirubin 0.6 mg/dL (0.2-1.0) 07/19/18 01:30 AST 13 U/L (15-37) L 07/19/18 01:30 ALT 9 U/L (12-78) L 07/19/18 01:30 Alkaline Phosphatase 101 U/L (45-117) 07/19/18 01:30 Lipase 68 U/L (73-393) L 07/19/18 01:30 Home Medications: Duloxetine HCl 60 mg PO DAILY 07/13/18 Hydrocodone 10/APAP 325 [[place] 10/325*] 1 tab PO TIDP PRN 07/13/18 Pregabalin [Lyrica*] 50 mg PO TID 07/13/18 Tizanidine [Zanaflex*] 4 mg PO Q12HR 07/13/18 Trazodone [Desyrel*] 100 mg PO BEDTIME 07/13/18 Doxycycline Monohydrate 100 mg PO BID #20 capsule 07/21/18 New Medications: Doxycycline Monohydrate 100 mg PO BID #20 capsule Patient Discharge Instructions: Please f.u with PCP in to 1 to 2 week post discharge. New medication. Doxycycline 100mg BID Diet: Regular Activity: Ad karli
[2018-07-21 14:22] VITALS: BP 109/53
[2018-07-21] MEDS ORDERED: NA CHLORIDE 0.9% 250 ML ONE (15:02)
== END 2018-07-21 15:30 | disposition home or self-care (01) | DRG 315 ==
LOC: ER 00:29 → ERHOLD 03:20 → 2ND 07:48
PROVIDERS: ADMIT Hospitalist; ATTEND Family Medicine
DX: T80.1XXA Vascular complications following infusion, transfusion and therapeutic injection, initial encounter (principal); L03.114 Cellulitis of left upper limb; K92.0 Hematemesis; I80.8 Phlebitis and thrombophlebitis of other sites; Y74.1 Therapeutic (nonsurgical) and rehabilitative general hospital and personal-use devices associated with adverse incidents; Y92.019 Unspecified place in single-family (private) house as the place of occurrence of the external cause
CPT/HCPCS: 36415; 71045; 80048; 80076; 83690; 83735; 83880; 84484; 85025; 85610; 86850; 86900; 86901; 87040; 93971; 96372; 99285; C9113; J1170; J1650; J2270; J2405; J2543; J3370; J7030

== ENCOUNTER 2022-09-20 16:31 | Inpatient (IN) | payer OTHER ==
[2022-09-20] MEDS ORDERED: NA CHLORIDE 0.9% 1,000 ML ONE (16:45)
[2022-09-20] MEDS ORDERED: MORPHINE 4 MG/ML SYR ONE (16:45)
[2022-09-20] MEDS ORDERED: FAMOTIDINE 20 MG/2 ML VIAL IV ONE (16:45)
[2022-09-20] MEDS ORDERED: ONDANSETRON 4 MG/2 ML VIAL ONE ×3 (16:45→22:17)
--- OUTSIDE RECORDS SUMMARY | 2022-09-20 16:53 | XMS REPORT | Continuity of Care Document ---
:1950 Author Organization [facility] t Address [address] [place] [address] Care Team Providers Name Role Phone SISSON_C Attending Clinician Unavailable Andrés Attending Clinician Unavailable Oscar-Mbayo_A_AH Attending Clinician Unavailable SISSON_C Admitting Clinician Unavailable Andrés Admitting Clinician Unavailable Oscar-Mbayo_A_AH Admitting Clinician Unavailable Payers Payer Name Policy Type Policy Number Effective Date Expiration Date S zully MEDIC[place]: [id number] [employer] [facility] - [id number] 2019 [employer] 00:00:00 (MEDICARE REPLACEMENT/ADVANT AGE - HMO) Problems Condition Condition Condition Status Onset Resolution Last Treating Co mments Source Name Details Category Date Date Treatment Clinician Date Mild Mild Problem Active [facility] depression Depression 5-10 Fa royce 00:00: Practic 00 e Low back Low Back Problem Active 0 [place] ge pain Pain 5-05 Family 00:00: Practic 00 e Allergies, Adverse Reactions, Alerts This patient has no known allergies or adverse reactions. Social History Smoking Status Start Date Stop Date Source Never Smoker [facility] Family P andrew Medications Ordered Filled Start Stop Current Ordering Indication Dosage Frequency Signature Comments Components Source Medication Medication Date Date Medication? Clinician (SIG) Name Name [place] 10 [place] 10 No 1 Q8H [place] 10 Rowena bonnie mg-325 mg mg-325 mg mg-325 mg Family tablet Take tablet Take tablet Practic 1 tablet 1 tablet Take 1 e every 8 every 8 tablet hours by hours by every 8 oral route oral route hours by as needed. as needed. oral route as needed. Immunizations Ordered Immunization Filled Immunization Date Status Commen ts Source Name Name influenza, influenza, 2019-01-08 Completed [facility] injectable, injectable, 00:00:00 Practice quadrivalent quadrivalent Vital Signs Vital Name Observation Time Observation Value Comments Source Height 2019-08-13 00:00:00 56 [in_i] [facility] Practice BMI (Body Mass 2019-08-13 00:00:00 29.6 kg/m2 [facility] Index) Practice Body Weight 2019-08-13 00:00:00 132 [lb_av] [facility] Procedures Procedure Date / Time Performed Performing Clinician [facility] cem Hysterectomy (Partial) [facility] Practice Neck Spine Fusion [facility] Arthroplasty of Left [facility] Shoulder Practice Plan of Care Planned Activity Planned Date Details Comments Source Instructions [facility] Encounters Start End Encounter Admission Attending Care Care Encounter Source Date/Time Date/Time Type Type Clinicians Facility Department ID 2022-08-16 2022-08-16 Outpatient SISSON_C [facility] 2022 [place] 00:00:00 00:00:00 [id number] 2022-08-16 2022-08-16 Outpatient SISSON_C [facility] 2022 [place] 00:00:00 00:00:00 [id number] 2019-09-12 2019-09-12 Outpatient Andrés MMG MMG [id number] [place] 11:13:00 11:13:00 [facility] 2019-09-05 2019-09-05 Outpatient Oscar-Mbayo VFP VFP [phone] [facility] 07:26:00 07:26:00 _A_AH [id number] Family Practic e 2019-08-19 2019-08-19 Outpatient Oscar-Mbayo VFP VFP [phone] [facility] 11:00:00 11:00:00 _A_AH [id number] Family Practic e 2019-08-13 2019-08-13 Yasmeen VFP [place] - [id number] [place] 00:00:00 00:00:00 Oscar-Mbay [facility] dianna spencer, GLOBAL LOGISTICS MANAGER: Medical - Practi c [email or web address], [place] [address], [place] [address] , Ph. 2019-07-05 2019-07-05 Outpatient Oscar-Mbayo VFP VFP [phone] [facility] 05:10:00 05:10:00 _A_AH [id number] Family Practic e Results This patient has no known results.
[2022-09-20 17:04] LABS: Albumin 3.5 g/dL (3.4-5.0); Bilirubin Total 0.2 mg/dL (0.2-1.0); Potassium 3.5 mEq/L (3.5-5.1); Protein, Total 7.3 g/dL (6.4-8.2); Troponin High Sensitivity 9.7 pg/mL (<58.9)
[2022-09-20 17:13] LABS: Absolute Lymphocytes (CBC) 3.7 K/uL (0.7-4.9); Hematocrit 36.9 % (36.0-45.0); Lymphocytes % 28.3 % (15.3-44.8); MPV 9.1 fL (7.6-11.3); RBC Red Blood Cell Count 4.28 M/uL (3.86-4.86)
[2022-09-20] MEDS ORDERED: HYDROMORPHONE HCL 1 MG/ML INJ ONE (17:19)
--- NOTE | 2022-09-20 18:20 | RAD REPORT ---
EXAM DESCRIPTION: CT - Abdomen Pelvis W Contrast - 09/20/2022 5:55 pm CLINICAL HISTORY: ABD PAIN COMPARISON: Abdomen Pelvis W Contrast dated 03/22/2016 TECHNIQUE: Thin cut axial CT imaging of the abdomen and pelvis was performed following intravenous a dministration of 100 mL Isovue 300. Multiplanar reformats were generated and reviewed. All CT scans are performed using dose optimization technique as appropriate and may include automated exposure control or mA/KV adjustment according to patient size. FINDINGS: Right more than left basilar atelectatic changes. The liver, spleen, and pancreas show no suspicious findings. Gallbladder and biliary tree are also wi thout suspicious finding. Symmetric renal function is seen with no hydronephrosis or suspicious renal mass. 7 millimeter nonobs tructing right lower calyx calculus Mild free fluid and scattered locules of intraperitoneal free air throughout the upper and lower abdo men. Apparent wall thickening throughout most of the colon and some segments of small bowel, although evaluation is limited by nondistention. Mild sigmoid diverticulosis. No suspicious mass or bulky lym phadenopathy. Fat containing left inguinal hernia. The urinary bladder is without significant finding . Left eighth and right tenth rib healing fractures. Superior endplate compression deformity at T9, of indeterminate age. IMPRESSION: Mild free fluid and locules of intraperitoneal free air throughout the abdomen, suggesti ve of a perforated viscus. The site of perforation is difficult to localize. Apparent wall thickening throughout most of the colon and some segments of small bowel, could be reac tive or inflammatory, although evaluation is limited by nondistention. No appreciable fluid collections. Other incidental findings including healing rib fractures and age-indeterminate superior endplate com pression deformity at T9. Mild sigmoid diverticulosis. The findings were communicated to Bill Contreras on 09/20/2022 at 18:12 hours.
[2022-09-20] MEDS ORDERED: PIPERACIL/TAZO 3.375 GM VIAL IV ONE (18:26)
[2022-09-20] MEDS ORDERED: NA CHLORIDE 0.9% 100 ML ONE (18:26)
--- NOTE | 2022-09-20 18:41 | EDPHYS ---
Physician Documentation [facility] Name: Twyla Shook Age: 72 yrs Sex: Female : 1950 Arrival Date: 09/20/2022 Time: 16:31 Bed 7 Private MD: ED Physician Bill Contreras HPI: 09/20 16:34 This 72 yrs old Female presents to ER via Unassigned with complaints of abd pain. rn 16:34 The patient presents with abdominal pain right lower quadrant. rn 16:34 Onset: The symptoms/episode began/occurred today. The symptoms do not radiate. rn Associated signs and symptoms: Pertinent negatives: blood in stools, chest pain, fever, shortness of breath, vomiting. Modifying factors: The symptoms are alleviated by nothing, the symptoms are aggravated by movement, touching the area. Severity of pain: At its worst the pain was moderate in the emergency department the pain is unchanged. The patient has not experienced similar symptoms in the past. The patient has not recently seen a physician. Historical: - Allergies: 16:48 No Known Allergies; mb9 - Home Meds: 16:48 None [Active]; mb9 - PMHx: 16:34 Degenerative disc disease; GI Bleed; Headaches; mb9 - PSHx: 16:34 None; mb9 - Immunization history:: Adult Immunizations up to date. - Social history:: Smoking status: Patient denies any tobacco usage or history of. - Family history:: not pertinent. - Hospitalizations: : No recent hospitalization is reported. ROS: 16:34 Constitutional: Negative for fever, chills, and weight loss, Eyes: Negative for injury, rn pain, redness, and discharge, Cardiovascular: Negative for chest pain, palpitations, and edema, Respiratory: Negative for shortness of breath, cough, wheezing, and pleuritic chest pain, Abdomen/GI: + abd pain Back: Negative for injury and pain, : Negative for injury, bleeding, discharge, and swelling, MS/Extremity: Negative for injury and deformity, Skin: Negative for injury, rash, and discoloration, Neuro: Negative for headache, weakness, numbness, tingling, and seizure. Exam: 16:34 Constitutional: This is a well developed, well nourished patient who is awake, alert, rn appears uncomfortable Head/Face: Normocephalic, atraumatic. Cardiovascular: Regular rate and rhythm. No pulse deficits. Respiratory: No increased work of breathing, no retractions or nasal flaring. Abdomen/GI: soft, + tenderness RLL, no rebound, + guarding. Skin: Warm, dry MS/ Extremity: Pulses equal, no cyanosis. Neuro: Awake and alert, GCS 15 16:57 ECG was reviewed by the Attending Physician. rn Vital Signs: 16:32 BP 175 / 103; Pulse 76; Resp 20; Temp 97.7; Pulse Ox 98% on R/A; Weight 79.38 kg; mb9 Height 5 ft. 6 in. ; Pain 10/10; 16:58 BP 167 / 76; Pulse 70; Resp 20; Pulse Ox 98% on R/A; mb9 17:21 BP 187 / 95; Pulse 96; Resp 22; Pulse Ox 95% on R/A; Pain 10/10; mb9 18:36 BP 161 / 72; Pulse 87; Resp 19; Pulse Ox 100% on 2 lpm NC; mb9 19:42 BP 136 / 64; Pulse 94; Resp 22; Pulse Ox 96% on 2 lpm NC; ll3 16:32 Body Mass Index 28.25 (79.38 kg, 167.64 cm) mb9 16:32 Pain Scale: Adult mb9 17:21 Pain Scale: Adult mb9 MDM: 16:32 Patient medically screened. rn 17:45 ED course: Pt doing much better after dilaudid, going to CT now.. rn 18:37 Differential diagnosis: appendicitis, bowel obstruction, cholecystitis, Cholelithiasis, rn diverticulitis, non-specific abd pain, pancreatitis, Peptic Ulcer Disease, Perf. Duodenal Ulcer, Perf. Gastric Ulcer, Peritonitis, Pyelonephritis, urinary tract infection. Data reviewed: vital signs, nurses notes, lab test result(s), radiologic studies, CT scan, and as a result, I will admit patient. Consideration of Admission/Observation Patient was admitted/placed on observation. Escalation of care including admission/observation considered. Management of patient was discussed with the following: Heel Sorter: Dr. Ruiz. Counseling: I had a detailed discussion with the patient and/or guardian regarding: the historical points, exam findings, and any diagnostic results supporting the discharge/admit diagnosis, lab results, radiology results, the need for further work-up and treatment in the hospital. Response to treatment: the patient's symptoms have mildly improved after treatment, and as a result, I will admit patient. 09/20 16:33 Order name: CBC with Diff; Complete Time: 17:38 rn 09/20 16:33 Order name: CMP; Complete Time: 17:10 rn 09/20 16:33 Order name: Lipase; Complete Time: 17:10 rn 09/20 16:33 Order name: Urinalysis w/ reflexes rn 09/20 16:33 Order name: Troponin High Sensitivity; Complete Time: 17:10 rn 09/20 17:10 Order name: Lactate w/ 2H reflex if indic.; Complete Time: 18:11 rn 09/20 18:11 Order name: Blood Culture Adult (2) rn 09/20 16:33 Order name: CT Abd/Pelvis - IV Contrast Only; Complete Time: 18:24 rn 09/20 16:33 Order name: EKG; Complete Time: 16:34 rn 09/20 16:33 Order name: IV Saline Lock; Complete Time: 16:35 rn 09/20 16:33 Order name: Labs collected and sent; Complete Time: 16:35 rn 09/20 16:33 Order name: EKG - Nurse/Tech; Complete Time: 16:42 rn 09/20 19:18 Order name: NPO; Complete Time: 19:21 rn EC:57 Rate is 71 beats/min. Rhythm is regular. QRS [place] is Normal. CA interval is normal. QRS rn interval is normal. QT interval is normal. No Q waves. T waves are Normal. No ST changes noted. Clinical impression: Normal ECG. Interpreted by me. Reviewed by me. Administered Medications: 16:40 Drug: NS 0.9% IV 1000 ml Route: IV; Rate: 1 bolus; Site: right antecubital; mb9 16:40 Drug: Famotidine IVP 20 mg Route: IVP; Site: right antecubital; mb9 17:32 Follow up: Response: No adverse reaction mb9 16:41 Drug: Ondansetron IVP 4 mg Route: IVP; Site: right antecubital; mb9 17:32 Follow up: Response: No adverse reaction mb9 16:45 Drug: morphine IVP or IV 4 mg Route: IVP; Infused Over: 4 mins; Site: right antecubital;mb9 17:32 Follow up: Response: No adverse reaction mb9 17:18 Drug: HYDROmorphone IVP 1 mg Route: IVP; Site: right antecubital; mb9 17:58 Follow up: Response: No adverse reaction mb9 18:35 Drug: Piperacillin-Tazobactam IVPB 3.375 grams Route: IVPB; Infused Over: 60 mins; mb9 Site: right antecubital; 19:21 Drug: Pantoprazole IVP 40 mg Route: IVP; Site: right antecubital; ll3 Disposition Summary: 09/20/22 18:40 Hospitalization Ordered Hospitalization Status: Inpatient Admission rn Provider: Mary Salas rn Location: Telemetry/MedSurg (Inpatient) rn Condition: Stable rn Problem: new rn Symptoms: have improved rn Bed/Room Type: Standard rn Room Assignment: rn Diagnosis - Perforation of intestine (nontraumatic) rn - Pneumoperitoneum rn Forms: - Medication Reconciliation Form rn - SBAR form rn Signatures: Dispatcher [employer] EDBill Penaloza MD MD rn Loubet, Lynsea, RN RN 3 Denise Ellis RN RN mb9 Corrections: (The following items were deleted from the chart) 16:48 16:34 Allergies: butorphanol tartrate [Inactive]; 9 9 16:48 16:34 Allergies: Stadol [Inactive]; 9 9 16:48 16:34 Home Meds: Lyrica 50 mg Oral 1 cap [Inactive]; 9 9 16:48 16:34 Home Meds: [place] 10-325 mg Oral tab 1 tab every 8 hrs [Inactive]; mb9 9 16:48 16:34 Home Meds: duloxetine 60 mg Oral cpDR 1 cap once daily [Inactive]; mb9 mb9 16:48 16:34 Home Meds: trazodone 100 mg Oral tab 1 tab 3 times per day [Inactive]; mb9 mb9 16:48 16:34 Home Meds: tizanidine 4 mg Oral cap 1 cap 3 times per day [Inactive]; mb9 mb9
--- NOTE | 2022-09-20 18:41 | ER ---
Nurse's Notes [facility] Name: Twyla Shook Age: 72 yrs Sex: Female : 1950 Arrival Date: 09/20/2022 Time: 16:31 Bed 7 Private MD: Diagnosis: Perforation of intestine (nontraumatic);Pneumoperitoneum Presentation: 09/20 16:32 Chief complaint: EMS states: "Toned out for severe abdominal pain while walking to 9 mailbox. Pt states the pain hit her all at once in the lower abdomen. 20 gauge to right AC.". Coronavirus screen: Vaccine status: Patient reports being unvaccinated. Ebola Screen: No symptoms or risks identified at this time. Initial Sepsis Screen: Does the patient meet any 2 criteria? No. Patient's initial sepsis screen is negative. Does the patient have a suspected source of infection? No. Patient's initial sepsis screen is negative. Risk Assessment: Do you want to hurt yourself or someone else? Patient reports no desire to harm self or others. Onset of symptoms was September 20, 2022. 16:32 Method Of Arrival: EMS: [place] [address] 16:32 Acuity: LEE 2 mb9 Triage Assessment: 16:48 General: Appears uncomfortable, Behavior is cooperative. Pain: Complains of pain in mb9 abdomen Pain currently is 10 out of 10 on a pain scale. Quality of pain is described as throbbing, Pain began suddenly, Is continuous, Aggravated by repositioning. EENT: No signs and/or symptoms were reported regarding the EENT system. Neuro: Jane Agitation-Sedation Scale (RASS): 0 - Alert and Calm Level of Consciousness is awake, alert, obeys commands, Oriented to person, place, time, situation, Appropriate for age. Cardiovascular: Denies chest pain, shortness of breath, Heart tones S1 S2 present Rhythm is regular. Respiratory: Airway is patent Respiratory effort is even, unlabored, Respiratory pattern is regular, symmetrical, Breath sounds are clear bilaterally. GI: Abdomen is round non-distended, Bowel sounds present X 4 quads. Abd is soft Abdomen is tender to palpation in right lower quadrant and left lower quadrant Patient currently denies bloody stool, nausea. Derm: Skin is intact, Skin is clammy, diaphoretic, Skin is pale, Skin temperature is cool. Musculoskeletal: Range of motion: intact in all extremities. Historical: - Allergies: 16:48 No Known Allergies; mb9 - Home Meds: 16:48 None [Active]; mb9 - PMHx: 16:34 Degenerative disc disease; GI Bleed; Headaches; mb9 - PSHx: 16:34 None; mb9 - Immunization history:: Adult Immunizations up to date. - Social history:: Smoking status: Patient denies any tobacco usage or history of. - Family history:: not pertinent. - Hospitalizations: : No recent hospitalization is reported. Screenin:51 [facility] ED Fall Risk Assessment (Adult) History of falling in the last 3 months, mb9 including since admission No falls in past 3 months (0 pts) Confusion or Disorientation No (0 pts) Intoxicated or Sedated No (0 pts) Impaired Gait No (0 pts) Mobility Assist Device Used No (0 pt) Altered Elimination No (0 pt) Score/Fall Risk Level 0 - 2 = Low Risk Oriented to surroundings, Maintained a safe environment, Educated pt \\T\\ family on fall prevention, incl call for assistance when getting out of bed. Abuse screen: Denies threats or abuse. Nutritional screening: No deficits noted. Tuberculosis screening: No symptoms or risk factors identified. Assessment: 16:51 Reassessment: see triage assessment. mb9 17:31 Reassessment: Pt O2 saturation at 89%. Pt placed on 2 L/min via nasal cannula. O2 mb9 saturation 96% on 2 L/min. ERP notified. 18:36 Reassessment: Patient and/or family updated on plan of care and expected duration. Pain mb9 level reassessed. Patient is alert, oriented x 3, equal unlabored respirations, skin warm/dry/pink. Patient states feeling better. Patient states symptoms have improved. Vital Signs: 16:32 BP 175 / 103; Pulse 76; Resp 20; Temp 97.7; Pulse Ox 98% on R/A; Weight 79.38 kg; mb9 Height 5 ft. 6 in. ; Pain 10/10; 16:58 BP 167 / 76; Pulse 70; Resp 20; Pulse Ox 98% on R/A; mb9 17:21 BP 187 / 95; Pulse 96; Resp 22; Pulse Ox 95% on R/A; Pain 10/10; mb9 18:36 BP 161 / 72; Pulse 87; Resp 19; Pulse Ox 100% on 2 lpm NC; mb9 19:42 BP 136 / 64; Pulse 94; Resp 22; Pulse Ox 96% on 2 lpm NC; ll3 16:32 Body Mass Index 28.25 (79.38 kg, 167.64 cm) mb9 16:32 Pain Scale: Adult mb9 17:21 Pain Scale: Adult mb9 ED Course: 16:32 Patient arrived in ED. mb9 16:32 Bill Contreras MD is Attending Physician. rn 16:32 Arm band placed on. mb9 16:32 Placed in gown. Bed in low position. Call light in reach. Side rails up X 1. Client mb9 placed on continuous cardiac and pulse oximetry monitoring. NIBP monitoring applied. engine monitor on. 16:34 Triage completed. mb9 16:35 Radiology exam delayed due to lab results not completed at this time. (BUN/Creatinine) jg10 IV insertion attempt and/or patient not having appropriate IV at this time. 16:42 EKG done, by ED staff, reviewed by Bill Contreras MD. zm 16:48 Denise Ellis, RN is Primary Nurse. mb9 16:50 Troponin High Sensitivity Sent. mb9 17:56 CT Abd/Pelvis - IV Contrast Only In Process Unspecified. EDMS 18:35 Blood Culture Adult (2) Sent. mb9 18:39 Mary Salas MD is Hospitalizing Provider. rn 19:40 No provider procedures requiring assistance completed. Patient admitted, IV remains in ll3 place. Administered Medications: 16:40 Drug: NS 0.9% IV 1000 ml Route: IV; Rate: 1 bolus; Site: right antecubital; mb9 16:40 Drug: Famotidine IVP 20 mg Route: IVP; Site: right antecubital; mb9 17:32 Follow up: Response: No adverse reaction mb9 16:41 Drug: Ondansetron IVP 4 mg Route: IVP; Site: right antecubital; mb9 17:32 Follow up: Response: No adverse reaction mb9 16:45 Drug: morphine IVP or IV 4 mg Route: IVP; Infused Over: 4 mins; Site: right antecubital;mb9 17:32 Follow up: Response: No adverse reaction mb9 17:18 Drug: HYDROmorphone IVP 1 mg Route: IVP; Site: right antecubital; mb9 17:58 Follow up: Response: No adverse reaction mb9 18:35 Drug: Piperacillin-Tazobactam IVPB 3.375 grams Route: IVPB; Infused Over: 60 mins; mb9 Site: right antecubital; 19:21 Drug: Pantoprazole IVP 40 mg Route: IVP; Site: right antecubital; ll3 Medication: 16:52 VIS not applicable for this client. mb9 Outcome: 18:40 Decision to Hospitalize by Provider. rn 19:40 Admitted to OR accompanied by nurse, via stretcher, with chart, Other Going to ICU ll3 after SX Report called to Receiving SPLUNK ARCHITECT 19:40 Condition: stable 19:40 Instructed on the need for admit, Demonstrated understanding of instructions. 19:48 Patient left the ED. aa9 Signatures: Dispatcher [employer] EDMS Bill Contreras MD MD rn Loubet, Lynsea, RN RN ll3 Jelena Chappell Aylin, RN RN aa9 [facility] Denise Ellis RN RN mb9 Corrections: (The following items were deleted from the chart) 16:48 16:34 Allergies: butorphanol tartrate [Inactive]; 9 16:48 16:34 Allergies: Stadol [Inactive]; 9 16:48 16:34 Home Meds: Lyrica 50 mg Oral 1 cap [Inactive]; 9 16:48 16:34 Home Meds: [place] 10-325 mg Oral tab 1 tab every 8 hrs [Inactive]; 9 16:48 16:34 Home Meds: duloxetine 60 mg Oral cpDR 1 cap once daily [Inactive]; 9 16:48 16:34 Home Meds: trazodone 100 mg Oral tab 1 tab 3 times per day [Inactive]; 9 16:48 16:34 Home Meds: tizanidine 4 mg Oral cap 1 cap 3 times per day [Inactive]; mb9 9 16:48 16:32 Pulse 76bpm; Resp 20bpm; Pulse Ox 98% RA; Temp 97.7F; 79.38 kg; Height 5 ft. 6 mb9 in.; BMI: 28.2; Pain 10/10, Adult; 9 17:10 General: Appears uncomfortable, Behavior is anxious, crying, [place] [id number] 17:10 Pain: Pain currently is 10 out of 10 on a pain scale. [place] [id number] 17:10 Pain: Alleviated by nothing. [facility]9
--- NOTE | 2022-09-20 19:18 | P.HP ---
Certification for Inpatient Patient admitted to: Inpatient With expected LOS: >2 Midnights Patient will require the following post-hospital care: None Practitioner: I am a practitioner with admitting privileges, knowledge of patient current condition, hospital course, and medical plan of care. Services: Services provided to patient in accordance with Admission requirements found in Title 42 Section 412.3 of the Code of Federal Regulations Patient History Date of Service: 09/20/22 Reason for admission: Intestinal Perf, Pneumoperitoneum History of Present Illness: Ms. Shook is a 72-year-old female with degenerative disc disease, GERD, peptic ulcer disease/history of GI bleed who presented to the emergency department with complaints of sudden onset of abdominal pain while she was walking outside. CT showed "Mild free fluid and locules of intraperitoneal free air throughout the abdomen, suggestive of a perforated viscus. The site of perforation is difficult to localize. Apparent wall thickening throughout most of the colon and some segments of small bowel, could be reactive or inflammatory, although evaluation is limited by nondistention. No appreciable fluid collections." WBC slightly elevated at 12.9. Lactate within normal limits. General surgery, Dr. Ruiz was consulted, evaluated patient and will take her to the OR [facility] for an exploratory laparotomy. She was started on Zosyn in the emergency department and will be admitted for further management. Allergies butorphanol tartrate [From Stadol] Allergy (Intermediate, Verified 07/13/18 00:44) Rash Home medications list reviewed: Yes Home Medications: Duloxetine HCl 60 mg PO DAILY 07/13/18 Hydrocodone 10/APAP 325 [[place] 10/325*] 1 tab PO TIDP PRN 07/13/18 Pregabalin [Lyrica*] 50 mg PO TID 07/13/18 Tizanidine [Zanaflex*] 4 mg PO Q12HR 07/13/18 Trazodone [Desyrel*] 100 mg PO BEDTIME 07/13/18 Doxycycline Monohydrate 100 mg PO BID #20 capsule 07/21/18 - Past Medical/Surgical History Diabetic: No -: GI Bleed -: MRS -: Digenerative disc disease -: Headaches -: x3 -: Hysterectomy -: left heel sx due to spurs -: neck sx Psychosocial/ Personal History: Patient is . She is a retired nurse. - Family History Mother -: Hypertension, Cancer Father -: Hypertension - Social History Smoking Status: Never smoker Alcohol use: No CD- Drugs: No Caffeine use: Yes Review of Systems Gastrointestinal: Abdominal Pain Physical Examination - Vital Signs Temperature: 97.7 F Blood Pressure: 161/72 Pulse: 87 Respirations: 19 Pulse Ox (%): 100 (2L NC) - Physical Exam General: Alert, In no apparent distress HEENT: Atraumatic, EOMI, Sclerae nonicteric Neck: Supple, 2+ carotid pulse no bruit Respiratory: Clear to auscultation bilaterally, Normal air movement Cardiovascular: Regular rate/rhythm, Normal S1 S2 Gastrointestinal: No rebound, Tenderness (Right lower quadrant), Guarding Musculoskeletal: No tenderness Integumentary: No rashes Neurological: Normal speech, Normal affect - Studies Laboratory Data (last 24 hrs) 09/20/22 16:35: Sodium 137, Potassium 3.5, BUN 18, Creatinine 0.77, Glucose 142 H, Total Bilirubin 0.2, AST 15, ALT 17, Alkaline Phosphatase 129 H, Lipase 172 H 09/20/22 16:35: WBC 12.90 H, Hgb 11.7 L, Hct 36.9, Plt Count 571 H Assessment and Plan - Problems (Diagnosis) (1) Intestinal perforation Current Visit: Yes Status: Acute (2) Pneumoperitoneum Current Visit: Yes Status: Acute (3) Peritonitis Current Visit: Yes Status: Acute (4) GERD (gastroesophageal reflux disease) Current Visit: Yes Status: Chronic Qualifiers: Esophagitis presence: esophagitis presence not specified Qualified Code(s): K21.9 - Gastro-esophageal reflux disease without esophagitis (5) Peptic ulcer disease Current Visit: Yes Status: Chronic - Plan Patient is admitted for further management of intestinal perforation and pneumoperitoneum. NPO. Dr. Ruiz taking patient to OR tonight for exploratory laparotomy, possible bowel resection / ostomy. Patient will be admitted to ICU post operatively. Continue zosyn, IV fluids, protonix, pain medications, antiemetics as needed. Blood cultures obtained. Monitor and replete electrolytes per protocol. Reconcile and continue home medications. Lovenox for VTE prophylaxis. Full code. Discharge Plan: Home Plan to discharge in: Greater than 2 days - Advance Directives Does patient have a Living Will: No Does patient have a Durable POA for Healthcare: No - Code Status/Comfort Care Code Status Assessed: Yes Code Status: Full Code Physician Review: Patient Assessed, Agree with Above Assessment and Plan Critical Care: No Time Spent Managing Pts Care (In Minutes): 50
[2022-09-20] MEDS ORDERED: PANTOPRAZOLE 40 MG INJ ONE (19:20)
[2022-09-20] MEDS ORDERED: Ringers Lactate 1,000 ML IV ONE (19:41)
--- NOTE | 2022-09-20 19:45 | P.CNS ---
Date of Consult: 09/20/22 Reason for consult: Abdominal pain History of present illness: 72-year-old female who presented to the emergency room with acute onset of diffuse abdominal pain associated with nausea but no vomiting. This occurred earlier today while the patient was walking. Patient denies any sore throat, runny nose, cough, headache, dizziness, chest pain, fever or chills. Patient denies any diarrhea, constipation, blood per rectum, dysuria or hematuria. Patient had her teeth removed 2 weeks ago and has been taking Motrin. Patient has a history of GI bleed and peptic ulcer disease. Review of systems: Otherwise unremarkable Past medical history: GERD, peptic ulcer disease, GI bleed, headaches Past surgical history: x3, laparoscopic hysterectomy, left heel surgery and neck surgery Allergies: Butophanol Social history: Patient does not smoke or drink alcohol Family history: Hypertension and cancer in the mother Vital signs: Stable, afebrile Physical exam: Awake, alert and oriented x3 Head and neck exam: Cranial nerves II through XII grossly within normal limits, no neck masses, no JVD, throat clear and neck supple Chest: Clear Heart: S1-S2 Abdomen: Soft, slightly distended with diffuse tenderness and rebound. Hypoactive bowel sounds. Extremity: Neurovascular intact, nontender Neuro: Nonfocal Diagnostic data: CT of the abdomen pelvis shows pneumoperitoneum with mild free fluid. White count is 12.9. Remainder of the labs reviewed Assessment: Pneumoperitoneum with peritonitis, etiology is most likely peptic ulcer disease. But, perforation from colon or small bowel is still possible. Plan/recommendation: Admit, n.p.o., IV fluids, IV antibiotics and to the OR for exploratory laparotomy, possible bowel resection possible ostomy. Patient and family understand risk, benefits and alternatives and agreed to procedure. Patient will need to be in the ICU for the next 24 to 48 hours. CC:
[2022-09-20] MEDS ORDERED: SUCCINYLCHOLINE 20 MG/ML (10 ML) IV ONE (19:49)
[2022-09-20] MEDS ORDERED: propofoL 200 MG/20 ML VIAL IV ONE (19:50)
[2022-09-20] MEDS ORDERED: MIDAZOLAM HCL 2 MG/2 ML INJ ONE (19:50)
[2022-09-20] MEDS ORDERED: FENTANYL CITR 100 MCG/2 ML ONE (19:50)
[2022-09-20] MEDS ORDERED: ROCURONIUM 50 MG/5 ML VIAL IV ONE (19:50)
[2022-09-20] MEDS ORDERED: ALBUTEROL 2.5 MG/3 ML NEB SOL NEB PRN (19:59)
[2022-09-20 20:18] LABS: Urine Bacteria <20 /HPF (<20); Urine Bilirubin NEGATIVE (Negative); Urine Blood Negative (Negative); Urine Clarity Clear (Clear); Urine Color Light-Yellow (Yellow); Urine Glucose NEGATIVE (Negative); Urine Mucus Slight /HPF (None Seen); Urine Protein TRACE (Negative); Urine RBC <5 /HPF (None Seen); Urine Urobilinogen Normal (Normal)
[2022-09-20] MEDS ORDERED: Phenylephrine HCl 10 MG/ML 1 ML VIAL ONE (20:30)
[2022-09-20] MEDS ORDERED: NS 0.9% VIAL 20 ML ONE (20:31)
--- NOTE | 2022-09-20 21:17 | P.OP ---
Date of Service: 09/20/22 Preop diagnosis: Pneumoperitoneum with peritonitis Postop diagnosis: Same, perforated duodenal ulcer Procedure performed: Exploratory laparotomy, Wes patch repair of a perforated duodenal ulcer Surgeon: Nick Ruiz MD Implementation Engineer: Latonia ARAUJO Estimated blood loss: Minimal Specimen: None Findings: As above Anesthesia: General Complications: None Drains: None Fluids and blood products: Nonapplicable Disposition: Recovery room Operative note: Patient brought to the OR and placed in the supine position. General anesthesia begun. Patient placed in the low lithotomy position. Then patient prepped and draped in usual sterile fashion. 20 blade used to make a midline incision from above the umbilicus just below the umbilicus. Peritoneal cavity entered with sharp and blunt dissection. Bleeding controlled with cautery. Peritoneal cavity had free fluid straw-colored in nature. There was fibrinous exudate near the duodenum and the stomach as well as the omentum nearby. Exploratory laparotomy revealed the following findingsnormal GE junction, normal stomach 8.5 cm perforated duodenal ulcer and the bulb of the duodenum with fibrinous exudate present around around. The remainder of the duodenal sweep was within normal limits. Small bowel from the duodenum to the cecum was within normal limits. The colon from the cecum to the rectum was within normal limits. The gallbladder liver were within normal limits. No other evidence of disease was seen. Portion of the omentum from the transverse colon was fashioned out with the LigaSure. 3-0 silk was used in the standard fashion to secure the omentum to the perforated duodenal ulcer in the standard fashion. Complete coverage of the ulcer was accomplished without tension. Prior to this, copious amount of saline warm irrigation was used in the peritoneal cavity. Clear effluent was present. As there was no other evidence of disease, the fascia was closed with #2 nylon. Subcutaneous wounds irrigated and bleeding controlled with cautery. All counts of instruments, needles and blades were accurate. Skin was closed with tuan. Sterile dressing applied and patient awakened. Patient taken to recovery room in good general condition. CC:
[2022-09-20] MEDS ORDERED: SODIUM CHLORIDE 0.9% 10ML INJ IV PRN (21:25)
[2022-09-20] MEDS ORDERED: NEOSTIGMINE 1 MG/ML -10 ML VIAL ONE (21:29)
[2022-09-20] MEDS ORDERED: GLYCOPYRROLATE 0.2 MG/ML SYR ONE (21:29)
[2022-09-20] MEDS: HYDROMORPHONE HCL 1 MG/ML INJ ONE ×4 (21:35→22:08)
[2022-09-20] MEDS: NA CHLORIDE 0.9% 1,000 ML IV SCH ×2 (21:38→22:51)
[2022-09-21] MEDS: HYDROMORPHONE HCL 1 MG/ML INJ IV PRN ×5 (00:08→19:24)
[2022-09-21] MEDS: PIPER TAZO 3.375 GM in NA CHLORIDE 0.9% 100 ML IV SCH ×3 (01:08→17:35)
[2022-09-21 05:00] LABS: Absolute Lymphocytes (CBC) 0.5 K/uL (0.7-4.9); Hematocrit 34.9 % (36.0-45.0); Lymphocytes % 1.3 % (15.3-44.8); MCV 86.6 fL (80-100); MPV 8.8 fL (7.6-11.3); RBC Red Blood Cell Count 4.03 M/uL (3.86-4.86)
[2022-09-21 05:36] LABS: Phosphorus 3.9 mg/dL (2.5-4.9); Potassium 4.4 mEq/L (3.5-5.1)
[2022-09-21] MEDS: ENOXAPARIN 40 MG/0.4 ML SQ SCH (07:54)
[2022-09-21] MEDS: PANTOPRAZOLE 40 MG INJ IVP SCH ×2 (07:55→20:30)
[2022-09-21] MEDS: NA CHLORIDE 0.9% 1,000 ML IV SCH ×2 (07:56→19:24)
--- NOTE | 2022-09-21 08:18 | EKG ---
Test Date: 2022-09-20 Test Time: 16:40:36 Renewal Specialist: FANG MEASUREMENT RESULTS: Intervals: Rate: 71 OR: 150 QRSD: 76 QT: 402 QTc: 436 [place]: P: 65 OR: 150 QRS: -13 T: 31 INTERPRETIVE STATEMENTS: Normal sinus rhythm Normal ECG Compared to ECG 07/12/2018 18:57:13 No significant changes Electronically Signed On 09-21-22 08:17:26 CDT by Julio Cesar Grayson
[2022-09-21 08:58] LABS: Blood Morphology Comment NOT SEEN (NOT SEEN); Platelet Estimate ADEQ
--- NOTE | 2022-09-21 11:13 | PN ---
Date of Progress Note: 09/21/2022 Subjective: The patient is awake, alert. Complaining of incisional pain. No nausea or vomiting. Objective: Vital Signs: Stable. She is afebrile. Urine catheter put out 100 cc and 385 cc of the urine. Abdomen: Benign with hypoactive bowel sounds. Extremities: Dressing is clean, dry, intact. Laboratory Data: Her white count last night was 12.9; however, this morning 36.9 with a left shift. Assessment: Status post Wes patch repair of perforated duodenal ulcer. Recommendations: We will follow the patient's white count elevated today and if it is still trending up, we may switch to meropenem. I discussed the case with Dr. Brooks. If it is trending down, we c an continue present care. As the patient will be n.p.o. for 5 days, we can begin TPN today and encou rage incentive spirometry, physical therapy for ambulation, DVT prophylaxis, proton pump inhibitors. The patient will need to follow with GI as an outpatient. MAK/JEANETTE Voice ID: [id number] Report ID: [id number]
--- NOTE | 2022-09-21 13:57 | P.PN ---
Subjective Date of Service: 09/21/22 Chief Complaint: Intestinal Perf, Pneumoperitoneum Status post laparotomy and Wes patch for duodenal ulcer perforation. Patient appears stable and currently denies any pain. No recorded fever. Physical Examination - Vital Signs Temperature: 98.3 F Blood Pressure: 126/68 Pulse: 78 Respirations: 18 Pulse Ox (%): 98 - Studies Laboratory Data (last 24 hrs) 09/20/22 16:35: Sodium 137, Potassium 3.5, BUN 18, Creatinine 0.77, Glucose 142 H, Total Bilirubin 0.2, AST 15, ALT 17, Alkaline Phosphatase 129 H, Lipase 172 H 09/20/22 16:35: WBC 12.90 H, Hgb 11.7 L, Hct 36.9, Plt Count 571 H Assessment And Plan - Current Problems (Diagnosis) (1) Intestinal perforation Current Visit: Yes Status: Acute (2) Peritonitis Current Visit: Yes Status: Acute (3) Pneumoperitoneum Current Visit: Yes Status: Acute (4) Peptic ulcer disease Current Visit: Yes Status: Chronic - Plan Physical Exam General: Alert, In no apparent distress HEENT: Atraumatic, EOMI, Sclerae nonicteric Neck: Supple, 2+ carotid pulse no bruit Respiratory: Clear to auscultation bilaterally, Normal air movement Cardiovascular: Regular rate/rhythm, Normal S1 S2 Gastrointestinal: No rebound, dressed surgical scar Musculoskeletal: No tenderness Integumentary: No rashes Neurological: Normal speech, Normal affect Plan Duodenal ulcer/intestinal perforation/ Status post laparotomy and Wes patch Surgery Dr. Ruiz input appreciated Keep n.p.o. Continue IV Zosyn Patient with severe leukocytosis which is likely reactive to stress from surgery Repeat CBC today. Change antibiotics to IV meropenem if severe leukocytosis persist. Continue IV Protonix Monitor and replete electrolyte as needed Supportive measures-pain management and antiemetics as needed Monitor and optimize electrolytes. PICC line for TPN given anticipated prolonged n.p.o. status. Dr. Ruiz to follow. Follow culture results. DVT prophylaxis: Lovenox
--- NOTE | 2022-09-21 14:32 | RAD REPORT ---
EXAM DESCRIPTION: [facility] Single View09/21/2022 2:26 pm CLINICAL HISTORY: picc line placement COMPARISON: Chest Single View dated 07/19/2018; Chest Single View dated 07/12/2018; CHEST SINGLE VIEW d ated 02/22/2011 TECHNIQUE: Portable AP view of the chest. FINDINGS: Left arm PICC has been placed with catheter tip projecting over the mid to distal SVC. Pat jay bibasilar airspace opacities and central interstitial prominence. No pneumothorax or effusion. T he cardiomediastinal contours are unremarkable. IMPRESSION: Satisfactory positioning of left arm PICC. Patchy bibasilar airspace opacities and central interstitial prominence, could relate to atelectasis with or without mild superimposed central congestion.
[2022-09-21] MEDS ORDERED: PHENOL 1.4% ORAL SPRAY 180ML MM PRN (15:00)
[2022-09-21 15:04] LABS: Absolute Lymphocytes (CBC) 1.1 K/uL (0.7-4.9); Hematocrit 32.4 % (36.0-45.0); Lymphocytes % 3.5 % (15.3-44.8); MCV 86.6 fL (80-100); RBC Red Blood Cell Count 3.74 M/uL (3.86-4.86)
[2022-09-21] MEDS: ONDANSETRON 4 MG/2 ML VIAL IV PRN (16:10)
[2022-09-21] MEDS: AA 5%/D20W/ELECTROLYTES-TPN 2,000 ML, Lipids 20% 250 ML with MULTIVITAMINS INJ 10 ML IV SCH ×3 (17:35)
[2022-09-21] MEDS ORDERED: ALBUTEROL 2.5 MG/3 ML NEB SOL NEB PRN (19:00)
[2022-09-21] MEDS: Mupirocin NASAL 2 APPL/1 GM TUBE NAS SCH (20:30)
[2022-09-22] MEDS: PIPER TAZO 3.375 GM in NA CHLORIDE 0.9% 100 ML IV SCH ×3 (00:13→17:52)
[2022-09-22] MEDS: HYDROMORPHONE HCL 1 MG/ML INJ IV PRN ×7 (00:50→22:42)
[2022-09-22] MEDS: ONDANSETRON 4 MG/2 ML VIAL IV PRN ×4 (00:51→22:43)
[2022-09-22 04:44] LABS: Absolute Lymphocytes (CBC) 0.9 K/uL (0.7-4.9); Hematocrit 29.5 % (36.0-45.0); MCV 86.2 fL (80-100); MPV 8.5 fL (7.6-11.3); RBC Red Blood Cell Count 3.42 M/uL (3.86-4.86)
[2022-09-22 05:04] LABS: Potassium 3.9 mEq/L (3.5-5.1)
[2022-09-22] MEDS: PANTOPRAZOLE 40 MG INJ IVP SCH ×2 (08:11→19:34)
[2022-09-22] MEDS: ENOXAPARIN 40 MG/0.4 ML SQ SCH (08:11)
[2022-09-22] MEDS: Mupirocin NASAL 2 APPL/1 GM TUBE NAS SCH ×2 (08:12→19:34)
--- NOTE | 2022-09-22 11:06 | P.PN ---
Subjective Date of Service: 09/22/22 Chief Complaint: Intestinal Perf, Pneumoperitoneum Patient noted to be drowsy but easily arousable. She just received a dose of IV hydromorphone for pain. No recorded fever. Physical Examination - Vital Signs Temperature: 99.1 F Blood Pressure: 143/68 Pulse: 92 Respirations: 20 Pulse Ox (%): 97 Assessment And Plan - Current Problems (Diagnosis) (1) Intestinal perforation Current Visit: Yes Status: Acute (2) Peritonitis Current Visit: Yes Status: Acute (3) Pneumoperitoneum Current Visit: Yes Status: Acute (4) Peptic ulcer disease Current Visit: Yes Status: Chronic - Plan Physical Exam General: Alert, In no apparent distress HEENT: Atraumatic, EOMI, Sclerae nonicteric Neck: Supple, 2+ carotid pulse no bruit Respiratory: Clear to auscultation bilaterally, Normal air movement Cardiovascular: Regular rate/rhythm, Normal S1 S2 Gastrointestinal: No rebound, dressed surgical scar Musculoskeletal: No tenderness Integumentary: No rashes Neurological: Normal speech, Normal affect Plan Duodenal ulcer/intestinal perforation/ Status post laparotomy and Wes patch Surgery Dr. Ruiz is following. Keep n.p.o. Continue IV Zosyn Patient with severe leukocytosis which is likely reactive to stress from surgery Leukocytosis improved significantly from yesterday Continue IV Protonix Monitor and replete electrolyte as needed Supportive measures-pain management and antiemetics as needed Monitor and optimize electrolytes. PICC line in. Patient started on TPN Cultures: No growth to date. DVT prophylaxis: Lovenox
--- NOTE | 2022-09-22 15:14 | PN ---
Date of Progress Note: 09/22/2022 The patient is awake, alert. Vitals stable, afebrile. Medical History: See previous dictation. /MODL Voice ID: [id number] Report ID: [id number]
--- NOTE | 2022-09-22 15:14 | PN ---
Date of Progress Note: 09/22/2022 Subjective: The patient is awake, alert. No complaint. Objective: Vital Signs: Stable, afebrile. NG tube put out 50 cc. Urine output is adequate. Abdomen: Benign. No peritonitis. Minimal incisional tenderness. Extremities: Dressing is clean, dry, and intact. Laboratory Data: Shows white count to be decreasing to 23,000. Electrolytes reviewed. Assessment: Status post Wes patch repair for perforated duodenal ulcer. Recommendations: Continue n.p.o., NG tube, IV fluids, and TPN, IV antibiotics as well as proton pump inhibitor. The patient will get a CT of the abdomen tomorrow to make sure there is no leak and on S at, will start liquid diet and advance as tolerated. The patient is clinically stable and slowl y improving. /MODL Voice ID: [id number] Report ID: [id number]
[2022-09-22] MEDS: NA CHLORIDE 0.9% 1,000 ML IV SCH (15:43)
[2022-09-22] MEDS: AA 5%/D20W/ELECTROLYTES-TPN 2,000 ML IV SCH (17:52)
[2022-09-23] MEDS: PIPER TAZO 3.375 GM in NA CHLORIDE 0.9% 100 ML IV SCH ×3 (00:09→17:13)
[2022-09-23] MEDS: HYDROMORPHONE HCL 1 MG/ML INJ IV PRN ×6 (03:30→23:04)
[2022-09-23 04:57] LABS: Absolute Lymphocytes (CBC) 0.8 K/uL (0.7-4.9); Hematocrit 29.3 % (36.0-45.0); Lymphocytes % 4.2 % (15.3-44.8); MPV 8.7 fL (7.6-11.3); RBC Red Blood Cell Count 3.41 M/uL (3.86-4.86)
[2022-09-23 05:15] LABS: Potassium 3.7 mEq/L (3.5-5.1)
[2022-09-23] MEDS ORDERED: KCL 20 MEQ/100 mL IVPB 20 MEQ/100 ML BAG IV SCH (06:00)
[2022-09-23] MEDS: PANTOPRAZOLE 40 MG INJ IVP SCH ×2 (07:03→19:57)
[2022-09-23] MEDS: ENOXAPARIN 40 MG/0.4 ML SQ SCH (07:04)
[2022-09-23] MEDS: Mupirocin NASAL 2 APPL/1 GM TUBE NAS SCH ×2 (07:04→19:58)
[2022-09-23] MEDS: ONDANSETRON 4 MG/2 ML VIAL IV PRN ×2 (07:05→15:48)
--- NOTE | 2022-09-23 10:19 | P.PN ---
Subjective Date of Service: 09/23/22 Chief Complaint: Intestinal Perf, Pneumoperitoneum Patient is complaining of pain in the surgical incision, worse with movement. She reports nausea but no vomiting. No recorded fever. Physical Examination - Vital Signs Temperature: 97.9 F Blood Pressure: 157/79 Pulse: 93 Respirations: 12 Pulse Ox (%): 99 Assessment And Plan - Current Problems (Diagnosis) (1) Intestinal perforation Current Visit: Yes Status: Acute (2) Peritonitis Current Visit: Yes Status: Acute (3) Pneumoperitoneum Current Visit: Yes Status: Acute (4) Peptic ulcer disease Current Visit: Yes Status: Chronic - Plan Physical Exam General: Alert, In no apparent distress Respiratory: Clear to auscultation bilaterally, Normal air movement Cardiovascular: Regular rate/rhythm, Normal S1 S2 Gastrointestinal: No rebound, dressed surgical scar Musculoskeletal: No tenderness Integumentary: No rashes Neurological: Normal speech, Normal affect Plan Duodenal ulcer/intestinal perforation/ Status post laparotomy and Wes patch Surgery Dr. Ruiz is following. Currently n.p.o. Continue IV Zosyn Patient with severe leukocytosis which is likely reactive to stress from surgery Leukocytosis continue to improve. Continue IV Protonix Monitor and replete electrolyte as needed Supportive measures-pain management and antiemetics as needed Monitor and optimize electrolytes. Continue TPN via PICC line(09/22) Insulin correction coverage. Cultures: No growth to date. DVT prophylaxis: Lovenox
[2022-09-23] MEDS ORDERED: D50W 25 GM/50 ML SYRINGE IV PRN (10:39)
[2022-09-23] MEDS ORDERED: GLUCAGON 1 MG/VIAL IM PRN (10:39)
[2022-09-23] MEDS ORDERED: D10W 125 ML IV PRN (10:43)
[2022-09-23] MEDS: INSULIN -REGULAR HUMAN 50 UNIT/0.5 ML ML SQ SCH ×3 (12:00→23:34)
--- NOTE | 2022-09-23 12:33 | RAD REPORT ---
EXAM DESCRIPTION: CTAbdomen Wo Contrast - 09/23/2022 12:22 pm CLINICAL HISTORY: R/O leak at duodenal perforation repair site COMPARISON: Abdomen Pelvis W Contrast dated 09/20/2022 TECHNIQUE: CT of the abdomen was performed following administration of enteric contrast. All CT scans are performed using dose optimization technique as appropriate and may include automated exposure control or mA/KV adjustment according to patient size. FINDINGS: Bilateral lower lobe consolidation which may represent a combination of atelectasis, aspir ation, and/or pneumonia. Small pleural effusions. Coronary artery calcifications are present. Enteric contrast is present within the stomach as is the tip of the NG tube. Gas is present anterior to the stomach and duodenum. Surgical changes from recent duodenal perforation repair. No extralumina l contrast is identified to confirm the presence of a leak. No fluid collections identified. Bilatera l nephrolithiasis. Atherosclerosis. Laparotomy defect. Vicarious excretion of contrast into the gallb ladder. IMPRESSION: Postoperative changes from prior duodenal perforation repair. Enteric contrast administe red and imaging obtained supine and oblique positioning oblique. No extraluminal contrast is present to confirm the presence of a leak. Small volume of pneumoperitoneum present which is not unexpected g iven recent surgery. Small pleural effusions with either underlying atelectasis, pneumonia, and/or pneumonitis.
--- NOTE | 2022-09-23 14:17 | PN ---
Date of Progress Note: 09/23/2022 Subjective: Patient is complaining of incisional pain. Objective: Vital Signs: Stable. She is afebrile. Abdomen: Has positive bowel sounds, is soft. No peritonitis. Incisional tenderness. Laboratory Data: White count is down to 20,000, there is still left shift which is slowly improving. Chemistry reviewed. Assessment: Status post exploratory laparotomy, repair of perforated duodenal ulcer with Wes justice. Recommendations: Continue proton pump inhibitor, IV antibiotics as ordered. We will get a CT of the abdomen with Gastrografin to rule out leak and then we will slowly begin diet and parenterally manag e the pain at this time. /MODL Voice ID: [id number] Report ID: [id number]
[2022-09-23] MEDS: AA 5%/D20W/ELECTROLYTES-TPN 2,000 ML, Lipids 20% 250 ML with MULTIVITAMINS INJ 10 ML IV SCH ×3 (17:13)
[2022-09-23] MEDS: MICONAZOLE 2% TOPICAL 15 GM TOP SCH (19:57)
[2022-09-24] MEDS: PIPER TAZO 3.375 GM in NA CHLORIDE 0.9% 100 ML IV SCH ×3 (00:17→16:40)
[2022-09-24] MEDS: ONDANSETRON 4 MG/2 ML VIAL IV PRN ×2 (03:40→23:04)
[2022-09-24] MEDS: HYDROMORPHONE HCL 1 MG/ML INJ IV PRN ×5 (03:41→22:52)
[2022-09-24 05:01] LABS: Hematocrit 29.5 % (36.0-45.0); MCV 85.9 fL (80-100); MPV 8.6 fL (7.6-11.3); RBC Red Blood Cell Count 3.43 M/uL (3.86-4.86)
[2022-09-24 05:18] LABS: Potassium 3.6 mEq/L (3.5-5.1)
[2022-09-24] MEDS: INSULIN -REGULAR HUMAN 50 UNIT/0.5 ML ML SQ SCH ×3 (05:57→17:45)
[2022-09-24] MEDS ORDERED: KCL 20 MEQ/100 mL IVPB 20 MEQ/100 ML BAG IV ONE (06:00)
[2022-09-24] MEDS: Mupirocin NASAL 2 APPL/1 GM TUBE NAS SCH ×2 (07:54→20:02)
[2022-09-24] MEDS: PANTOPRAZOLE 40 MG INJ IVP SCH ×2 (07:54→20:02)
[2022-09-24] MEDS: ENOXAPARIN 40 MG/0.4 ML SQ SCH (07:54)
[2022-09-24] MEDS: MICONAZOLE 2% TOPICAL 15 GM TOP SCH ×2 (07:56→20:02)
--- NOTE | 2022-09-24 09:29 | PN ---
Date of Progress Note: 09/24/2022 Subjective: Patient is awake, alert, complaining of some back pain. No abdominal pain. There is so me soreness. No nausea or vomiting and nothing out of the NG tube. The patient had a CAT scan yeste rday, which does not show any evidence of leak. Objective: VITALS: Stable. She is afebrile. ABDOMEN: Benign. Laboratory Data: Shows a white count down to 16.2 and left shift is improving as well. Assessment: Status post Wes patch repair of perforated duodenal ulcer. Recommendation: Begin clear liquid diet and clamp the NG tube. If residual less than 100, we will d iscontinue the NG tube and advance diet. Continue proton pump inhibitor and antibiotics. I discusse d the case with Dr. Brooks. We may consider testing for H. pylori. If that is positive, treat appro priately. Patient will need to follow up with the GI service for an EGD in 6-8 weeks after discharge . The patient is clinically improving and will be downgraded to the floor later today. /MODL Voice ID: [id number] Report ID: [id number]
--- NOTE | 2022-09-24 12:18 | P.PN ---
Subjective Date of Service: 09/24/22 Chief Complaint: Intestinal Perf, Pneumoperitoneum Patient states her pain is better today. She has no new complain. She denies nausea No recorded fever. Physical Examination - Vital Signs Temperature: 98.2 F Blood Pressure: 165/89 Pulse: 97 Respirations: 15 Pulse Ox (%): 93 Assessment And Plan - Current Problems (Diagnosis) (1) Intestinal perforation Current Visit: Yes Status: Acute (2) Peritonitis Current Visit: Yes Status: Acute (3) Pneumoperitoneum Current Visit: Yes Status: Acute (4) Peptic ulcer disease Current Visit: Yes Status: Chronic - Plan Physical Exam General: Alert, In no apparent distress Respiratory: Clear to auscultation bilaterally, Normal air movement Cardiovascular: Regular rate/rhythm, Normal S1 S2 Gastrointestinal: Normal bowel sounds, dressed surgical scar Musculoskeletal: No tenderness Integumentary: No rashes Neurological: Normal speech, Normal affect Plan Duodenal ulcer/intestinal perforation/ Status post laparotomy and Wes patch Surgery Dr. Ruiz is following. Currently n.p.o. Repeat CT abdomen with contrast shows no leak. Dr. Ruiz is considering home starting diet today. NG tube removal per Dr. Ruiz Continue IV Zosyn Patient with severe leukocytosis which is likely reactive to stress from surgery Leukocytosis continue to trend down. Continue IV Protonix Monitor and replete electrolyte as needed Supportive measures-pain management and antiemetics as needed Monitor and optimize electrolytes. Continue TPN via PICC line(09/22) Insulin correction coverage. Cultures: No growth to date. H. pylori testing. DVT prophylaxis: Lovenox
[2022-09-24] MEDS: AA 5%/D20W/ELECTROLYTES-TPN 2,000 ML IV SCH (16:40)
[2022-09-25] MEDS: PIPER TAZO 3.375 GM in NA CHLORIDE 0.9% 100 ML IV SCH ×3 (00:44→17:27)
[2022-09-25 04:35] LABS: Absolute Lymphocytes (CBC) 1.5 K/uL (0.7-4.9); Hematocrit 29.7 % (36.0-45.0); Lymphocytes % 12.3 % (15.3-44.8); MCV 84.8 fL (80-100); MPV 8.3 fL (7.6-11.3)
[2022-09-25 04:52] LABS: Albumin 2.2 g/dL (3.4-5.0); Bilirubin Total 0.5 mg/dL (0.2-1.0); Potassium 3.6 mEq/L (3.5-5.1); Protein, Total 6.3 g/dL (6.4-8.2)
[2022-09-25] MEDS: INSULIN -REGULAR HUMAN 50 UNIT/0.5 ML ML SQ SCH ×4 (05:39→17:26)
[2022-09-25] MEDS ORDERED: KCL 20 MEQ/100 mL IVPB 20 MEQ/100 ML BAG IV ONE (06:00)
[2022-09-25] MEDS: ONDANSETRON 4 MG/2 ML VIAL IV PRN ×2 (06:21→19:08)
[2022-09-25] MEDS: HYDROMORPHONE HCL 1 MG/ML INJ IV PRN ×4 (06:21→23:22)
--- NOTE | 2022-09-25 08:44 | PN ---
Date of Progress Note: 09/25/2022 Subjective: She is awake, alert, tolerating clear liquids. No nausea or vomiting. Passing gas. Sh cem has not had a bowel movement. Objective: Vital Signs: Stable. Afebrile. Abdomen: Benign Laboratory Data: Reviewed. White count is almost normalized. Assessment: Status post Wes patch repair due to perforated duodenal sweep. Recommendation: Continue antibiotics, proton pump inhibitor. H pylori testing. I encouraged ambula tion, DVT prophylaxis, and incentive spirometry. Probable discharge in 24-48 hours. /MODL Voice ID: [id number] Report ID: [id number]
[2022-09-25] MEDS: ENOXAPARIN 40 MG/0.4 ML SQ SCH (08:55)
[2022-09-25] MEDS: Mupirocin NASAL 2 APPL/1 GM TUBE NAS SCH ×2 (08:56→20:57)
[2022-09-25] MEDS: PANTOPRAZOLE 40 MG INJ IVP SCH ×2 (08:56→20:57)
[2022-09-25] MEDS: MICONAZOLE 2% TOPICAL 15 GM TOP SCH ×2 (08:57→20:57)
--- NOTE | 2022-09-25 11:29 | P.PN ---
Subjective Date of Service: 09/25/22 Chief Complaint: Intestinal Perf, Pneumoperitoneum Patient tolerated clear liquid diet. She reports fatigue after being transferred from bedside commode to bed. She states her pain is better controlled today. NG tube has been removed. Physical Examination - Vital Signs Temperature: 98.4 F Blood Pressure: 140/66 Pulse: 91 Respirations: 16 Pulse Ox (%): 98 Assessment And Plan - Current Problems (Diagnosis) (1) Intestinal perforation Current Visit: Yes Status: Acute (2) Peritonitis Current Visit: Yes Status: Acute (3) Pneumoperitoneum Current Visit: Yes Status: Acute (4) Peptic ulcer disease Current Visit: Yes Status: Chronic - Plan Physical Exam General: Alert, In no apparent distress Respiratory: Clear to auscultation bilaterally, Normal air movement Cardiovascular: Regular rate/rhythm, Normal S1 S2 Gastrointestinal: Normal bowel sounds, dressed surgical scar, abdominal binder in place. Musculoskeletal: No tenderness Integumentary: No rashes Neurological: Normal speech, Normal affect Plan Duodenal ulcer/intestinal perforation/ Status post laparotomy and Wes patch Surgery Dr. Ruiz is following. Repeat CT abdomen with contrast shows no leak. NG tube removed/ Patient is tolerating clear liquid diet. She wants to stick to liquid diet because her dentures are not available. Continue IV Zosyn Patient with severe leukocytosis which is likely reactive to stress from surgery Leukocytosis significantly improved. Continue IV Protonix Monitor and replete electrolyte as needed Supportive measures-pain management and antiemetics as needed Monitor and optimize electrolytes. Continue TPN via PICC line(09/22) until good oral intake. Insulin correction coverage. Cultures: No growth to date. H. pylori testing-urea breath test ordered. PT consult due to decreased performance status. DVT prophylaxis: Lovenox
[2022-09-25] MEDS: AA 5%/D20W/ELECTROLYTES-TPN 2,000 ML IV SCH (17:26)
[2022-09-26] MEDS: PIPER TAZO 3.375 GM in NA CHLORIDE 0.9% 100 ML IV SCH ×2 (00:04→08:13)
[2022-09-26] MEDS: HYDROMORPHONE HCL 1 MG/ML INJ IV PRN ×3 (04:08→11:19)
[2022-09-26 04:38] VITALS: BMI 30.4
[2022-09-26 05:12] LABS: Absolute Lymphocytes (CBC) 1.7 K/uL (0.7-4.9); Hematocrit 28.9 % (36.0-45.0); Lymphocytes % 20.5 % (15.3-44.8); MCV 85.4 fL (80-100); MPV 8.1 fL (7.6-11.3); RBC Red Blood Cell Count 3.39 M/uL (3.86-4.86)
[2022-09-26 05:41] LABS: Bilirubin Total 0.3 mg/dL (0.2-1.0); Potassium 4.2 mEq/L (3.5-5.1)
[2022-09-26] MEDS: INSULIN -REGULAR HUMAN 50 UNIT/0.5 ML ML SQ SCH ×4 (05:49→18:00)
[2022-09-26] MEDS: ENOXAPARIN 40 MG/0.4 ML SQ SCH (08:13)
[2022-09-26] MEDS: PANTOPRAZOLE 40 MG INJ IVP SCH ×2 (08:13→20:16)
[2022-09-26] MEDS: ONDANSETRON 4 MG/2 ML VIAL IV PRN ×2 (08:14→15:41)
[2022-09-26] MEDS: Mupirocin NASAL 2 APPL/1 GM TUBE NAS SCH (08:14)
[2022-09-26] MEDS: MICONAZOLE 2% TOPICAL 15 GM TOP SCH ×2 (08:15→20:16)
[2022-09-26 08:43] LABS: Blood Morphology Comment NOT SEEN (NOT SEEN); Platelet Estimate INCR; Platelets, Giant 1+
--- NOTE | 2022-09-26 11:17 | PN ---
Date of Progress Note: 09/26/2022 Subjective: The patient is awake, alert. No complaints. Passing gas. No nausea or vomiting. Tole rating liquids well. Objective: Vital Signs: Stable, afebrile. Abdomen: Benign. Assessment: Status post Wes patch repair of perforated duodenal ulcer. Recommendations: Continue IV antibiotics, proton pump inhibitors, advance diet to GI soft. The desmond ent can be discharged home in the morning on proton pump inhibitors, antibiotics, and pain medicine. The patient needs to follow up with GI Service in 4 to 6 weeks. The patient is clinically doing arielle CORADO/MODL Voice ID: [id number] Report ID: [id number]
--- NOTE | 2022-09-26 13:35 | P.PN ---
Subjective Date of Service: 09/26/22 Chief Complaint: Intestinal Perf, Pneumoperitoneum Patient has no new complaint. She denies pain. She has tolerated liquid diet. She gets fatigue after transfer to bedside commode. Physical Examination - Vital Signs Temperature: 98.1 F Blood Pressure: 142/69 Pulse: 88 Respirations: 17 Pulse Ox (%): 95 - Studies Microbiology Data (last 24 hrs): 09/20/22 18:20 Blood - Blood Aerobic Blood Culture - Final No growth in 5 days. 09/20/22 18:20 Blood - Blood Anaerobic Blood Culture - Final No growth in 5 days. 09/20/22 18:28 Blood - Blood Aerobic Blood Culture - Final No growth in 5 days. 09/20/22 18:28 Blood - Blood Anaerobic Blood Culture - Final No growth in 5 days. Assessment And Plan - Current Problems (Diagnosis) (1) Intestinal perforation Current Visit: Yes Status: Acute (2) Peritonitis Current Visit: Yes Status: Acute (3) Pneumoperitoneum Current Visit: Yes Status: Acute (4) Peptic ulcer disease Current Visit: Yes Status: Chronic - Plan Physical Exam General: Alert, In no apparent distress Respiratory: Clear to auscultation bilaterally, Normal air movement Cardiovascular: Regular rate/rhythm, Normal S1 S2 Gastrointestinal: Normal bowel sounds, dressed surgical scar, abdominal binder in place. Musculoskeletal: No tenderness Integumentary: No rashes Neurological: Normal speech, Normal affect Plan Duodenal ulcer/intestinal perforation/ Status post laparotomy and Wes patch Surgery Dr. Ruiz is following. Repeat CT abdomen with contrast shows no leak. NG tube removed Patient is tolerating liquid diet. She wants to stick to liquid diet because her dentures are not available. Diet advanced to full liquid. Patient had severe leukocytosis which is likely reactive to stress from surgery Leukocytosis resolved. Discontinue IV Zosyn Continue IV Protonix Monitor and replete electrolyte as needed Supportive measures-pain management and antiemetics as needed Monitor and optimize electrolytes. Discontinue TPN. Cultures: No growth to date. H. pylori testing-urea breath test ordered. PT consulted due to decreased performance status. DVT prophylaxis: Lovenox
[2022-09-26] MEDS: HYDROCODONE/APAP 5/325 MG TAB PO PRN ×2 (15:41→21:35)
[2022-09-27] MEDS: HYDROCODONE/APAP 5/325 MG TAB PO PRN ×3 (02:36→10:09)
[2022-09-27 05:15] LABS: Absolute Lymphocytes (CBC) 1.5 K/uL (0.7-4.9); Hematocrit 26.9 % (36.0-45.0); Lymphocytes % 19.7 % (15.3-44.8); MCV 85.1 fL (80-100); MPV 8.1 fL (7.6-11.3); RBC Red Blood Cell Count 3.16 M/uL (3.86-4.86)
[2022-09-27 05:25] LABS: Bilirubin Total 0.2 mg/dL (0.2-1.0); Magnesium 2.4 mg/dL (1.6-2.4); Potassium 4.5 mEq/L (3.5-5.1); Protein, Total 5.7 g/dL (6.4-8.2)
[2022-09-27] MEDS: INSULIN -REGULAR HUMAN 50 UNIT/0.5 ML ML SQ SCH ×2 (05:48)
--- NOTE | 2022-09-27 06:59 | P.PN ---
Date of Service: 09/27/22 Subjective: ROS: 10 point ROS as noted above, otherwise negative Physical Exam: GEN: Alert, oriented, NAD HEENT: Normal conjunctiva, sclera anicteric CV: Regular rate and rhythm, no edema Pulm: Nonlabored respirations on room air ABD: Soft, nontender, nondistended MSK: No joint tenderness Integumentary: No rashes Neuro: Normal speech, normal affect vitals reviewed Problem List: Duodenal ulcer/intestinal perforation Peritonitis Pneumoporitoneum Peptic ulcer disease Status post laparotomy and Wes patch Surgery Dr. Ruiz is following. Repeat CT abdomen with contrast shows no leak. NG tube removed Patient is tolerating liquid diet. She wants to stick to liquid diet because her dentures are not available. Diet advanced to full liquid. Patient had severe leukocytosis which is likely reactive to stress from surgery Leukocytosis resolved. Discontinue IV Zosyn Continue IV Protonix Monitor and replete electrolyte as needed Supportive measures-pain management and antiemetics as needed Monitor and optimize electrolytes. Discontinue TPN. Cultures: No growth to date. H. pylori testing-urea breath test ordered. PT consulted due to decreased performance status. VTE: Code: Dispo:
--- NOTE | 2022-09-27 07:52 | P.DS ---
Admission Date: 09/20/22 Discharge Date: 09/27/22 Disposition: ROUTINE DISCHARGE Discharge Condition: GOOD Reason for Admission: Intestinal Perforation, Pneumoperitoneum Consultations: General Surgery - Dr. Ruiz Brief History of Present Illness: 72yo F, PMH: degenerative disc disease, GERD, peptic ulcer disease/history of GI bleed Presented to ED with sudden onset of abdominal pain while she was walking outside. CT showed "Mild free fluid and locules of intraperitoneal free air throughout the abdomen, suggestive of a perforated viscus. The site of perforation is difficult to localize. Apparent wall thickening throughout most of the colon and some segments of small bowel, could be reactive or inflammatory, although evaluation is limited by nondistention. No appreciable fluid collections." WBC slightly elevated at 12.9. Lactate within normal limits. General surgery, Dr. Ruiz was consulted, evaluated patient and will take her to the OR for an exploratory laparotomy. She was started on Zosyn in the emergency department Hospital Course: Problem List: Duodenal ulcer/intestinal perforation with peritonitis Pneumoporitoneum Peptic ulcer disease Patient presented with abdominal pain. CT abdomen indicated Mild free fluid and locules of intraperitoneal free air throughout the abdomen, suggestive of a perforated viscus. General Surgery was consulted. Dr. Ruiz performed an exploratory laparotomy. She was found to have a 8.5 cm perforated duodenal ulcer and Dr. Ruiz performed a successful maria del carmen patch repair. Post-operatively she was gradually advanced to full liquid diet. She did have several days of NG tube and TPN. On day of discharge, her LFTs (AST/ALT, alk phos) were mildly elevated. She did not have any new symptoms. This was reviewed with Dr. Ruiz. Elevated LFTs are most likely related to the TPN, with lower chance but possibly antibiotics (she received zosyn). She will follow up with Dr. Ruiz in ~1 week. Outpatient CMP ordered to be done prior to follow up appointment. Wound care and diet as instructed by Dr Ruiz. New Prescription: Antibiotics: Ciprofloxacin and Flagyl for 1 week Pantoprazole twice a day Tylenol #3 as needed for pain Follow up: PCP 3-[address] Ruiz in ~ 1 week. Tuan to be removed at that time. Gastrointestinal within 1-2 months Physical Exam: GEN: Alert, oriented, NAD HEENT: Normal conjunctiva, sclera anicteric CV: Regular rate and rhythm, no edema Pulm: Nonlabored respirations on room air ABD: Soft, dressed surgical scar, abdominal binder in place, surgical tuan, mild discomfort on deep palpation Integumentary: No rashes Neuro: Normal speech, normal affect Vital Signs/Physical Exam: Temp Pulse Resp BP Pulse Ox 97.5 F 83 15 110/50 L 96 09/27/22 04:00 09/27/22 04:00 09/27/22 06:38 09/27/22 04:00 09/27/22 06:38 Laboratory Data at Discharge: WBC 7.60 thou/uL (4.3-10.9) 09/27/22 04:55 Hgb 8.8 g/dL (12.0-15.0) L 09/27/22 04:55 Hct 26.9 % (36.0-45.0) L 09/27/22 04:55 Plt Count 414 thou/uL (152-406) H 09/27/22 04:55 Sodium 131 mEq/L (136-145) L 09/27/22 04:55 Potassium 4.5 mEq/L (3.5-5.1) 09/27/22 04:55 BUN 18 mg/dL (7-18) 09/27/22 04:55 Creatinine 0.50 mg/dL (0.55-1.02) L 09/27/22 04:55 Glucose 101 mg/dL (74-106) 09/27/22 04:55 Phosphorus 3.9 mg/dL (2.5-4.9) 09/21/22 04:25 Magnesium 2.4 mg/dL (1.6-2.4) 09/27/22 04:55 Total Bilirubin 0.2 mg/dL (0.2-1.0) 09/27/22 04:55 AST 76 U/L (15-37) H 09/27/22 04:55 ALT 85 U/L (13-56) H 09/27/22 04:55 Alkaline Phosphatase 313 U/L (45-117) H D 09/27/22 04:55 Lipase 172 U/L (13-75) H 09/20/22 16:35 Home Medications: Acetaminophen [Tylenol] 325 mg PO Q4H PRN 09/21/22 Ibuprofen 400 mg PO Q4H PRN 09/21/22 Ciprofloxacin HCl 500 mg PO BID 7 Days #14 tab 09/27/22 Codeine/APAP [Tylenol W/Codeine #3 tab] 1 tab PO Q8HP PRN #15 tab 09/27/22 Pantoprazole Sodium [Protonix] 40 mg PO BID 30 Days #60 tab 09/27/22 metroNIDAZOLE [Flagyl] 500 mg PO Q8H 7 Days #21 tab 09/27/22 New Medications: Ciprofloxacin HCl 500 mg PO BID 7 Days #14 tab metroNIDAZOLE [Flagyl] 500 mg PO Q8H 7 Days #21 tab Pantoprazole Sodium [Protonix] 40 mg PO BID 30 Days #60 tab Codeine/APAP [Tylenol W/Codeine #3 tab] 1 tab PO Q8HP PRN #15 tab PRN Reason: Pain Physician Discharge Instructions: Patient presented with abdominal pain. CT abdomen indicated Mild free fluid and locules of intraperitoneal free air throughout the abdomen, suggestive of a perforated viscus. General Surgery was consulted. Dr. Ruiz performed an exploratory laparotomy. She was found to have a 8.5 cm perforated duodenal ulcer and Dr. Ruiz performed a successful maria del carmen patch repair. Post-operatively she was gradually advanced to full liquid diet. She did have several days of NG tube and TPN. On day of discharge, her LFTs (AST/ALT, alk phos) were mildly elevated. She did not have any new symptoms. This was reviewed with Dr. Ruiz. Elevated LFTs are most likely related to the TPN, with lower chance but possibly antibiotics (she received zosyn). She will follow up with Dr. Ruiz in ~1 week. Outpatient CMP ordered to be done prior to follow up appointment. Wound care and diet as instructed by Dr Ruiz. New Prescription: Antibiotics: Ciprofloxacin and Flagyl for 1 week Pantoprazole twice a day Tylenol #3 as needed for pain Follow up: PCP 3-[address] Ruiz in ~ 1 week. Dunn to be removed at that time. Gastrointestinal within 1-2 months Followup: Nick Ruiz MD [ACTIVE - CAN ADMIT] - 1 Week Time spent managing pt's care (in minutes): 45
[2022-09-27 08:22] VITALS: BP 113/51; TEMP 97.8
[2022-09-27] MEDS: PANTOPRAZOLE 40 MG INJ IVP SCH (08:40)
[2022-09-27] MEDS: MICONAZOLE 2% TOPICAL 15 GM TOP SCH (08:40)
[2022-09-27 10:07] VITALS: O2SAT 94
--- NOTE | 2022-09-27 11:49 | PN ---
Date of Progress Note: 09/27/2022 Subjective: The patient is awake, alert, tolerating diet, having a bowel movement. No pain. No alex sea, vomiting. Objective: Vital Signs: Stable, afebrile. Abdomen: Benign. Laboratory Data: Reviewed. Discussed with Dr. Contreras. Assessment: Status post Wes patch repair of perforated duodenal ulcer with slightly elevated live r function tests. Recommendations: The patient will be discharged home today on proton pump inhibitors. Follow up wit h GI. Antibiotics, pain medicine. We will repeat LFTs in a week when the patient sees me in the off ice and make further recommendations based on the result, but based on the patient's recent utilizati on of TPN, most likely that is the culprit; however, we will follow the numbers closely. Plan of car e discussed with Dr. Contreras. /JEANETTE Voice ID: [id number] Report ID: [id number]
== END 2022-09-27 10:26 | disposition home or self-care (01) | DRG 329 ==
LOC: ER 16:31 → ERHOLD 19:09 → 3RD-ICU 22:00 → 2ND 09-24 11:21
PROVIDERS: ADMIT Internal Medicine; ATTEND Hospitalist
PROC: 0DU907Z Supplement Duodenum with Autologous Tissue Substitute, Open Approach (ICD-10-PCS; principal; 2022-09-20 19:30)
PROC: 3E0436Z Introduction of Nutritional Substance into Central Vein, Percutaneous Approach (ICD-10-PCS; 2022-09-21)
PROC: 02HV33Z Insertion of Infusion Device into Superior Vena Cava, Percutaneous Approach (ICD-10-PCS; 2022-09-21)
DX: K63.1 Perforation of intestine (nontraumatic) (principal); K65.9 Peritonitis, unspecified; K66.8 Other specified disorders of peritoneum; K21.9 Gastro-esophageal reflux disease without esophagitis; K27.9 Peptic ulcer, site unspecified, unspecified as acute or chronic, without hemorrhage or perforation; D72.829 Elevated white blood cell count, unspecified; Z88.8 Allergy status to other drugs, medicaments and biological substances; Z79.899 Other long term (current) drug therapy; Z90.710 Acquired absence of both cervix and uterus
CPT/HCPCS: 36415; 36569; 71045; 74150; 74177; 80048; 80053; 81001; 82947; 83013; 83014; 83605; 83690; 83735; 84100; 84443; 84484; 85025; 86850; 86900; 86901; 87040; 93005; 94010; 94760; 96374; 96375; 97110; 97116; 97161; 97530; 99285; A4216; C9113; J1170; J1650; J1815; J2250; J2370; J2405; J2543; J2704; J2710; J3010; J3480; J7030; J7120; Q9967

== ENCOUNTER 2023-03-29 08:52 | Day surgery (SDC) | payer OTHER ==
--- NOTE | 2023-03-27 13:22 | RAD REPORT ---
EXAM DESCRIPTION: RAD - Chest Pa And Lat (2 Views) - 03/27/2023 1:14 pm CLINICAL HISTORY: PRE-OP Chest pain. TECHNIQUE: PA and lateral views of the chest were obtained. FINDINGS: The lungs are hyperexpanded compatible with COPD. The heart is upper limit of normal in si ze. No fracture or aggressive bony process. IMPRESSION: COPD without acute process identified. The USPSTF recommends annual screening for lung cancer with low-dose CT (LDCT) in adults aged 50 to 8 0 years who have a 20 pack-year smoking history and currently smoke or have quit within the past 15 y ears.
[2023-03-27 13:27] LABS: Hematocrit 39.1 % (36.0-45.0); Lymphocytes % 32.8 % (15.3-44.8); MCV 87.7 fL (80-100); MPV 8.3 fL (7.6-11.3); Platelets 426 thou/uL (152-406); RBC Red Blood Cell Count 4.46 M/uL (3.86-4.86)
[2023-03-27 13:41] LABS: Potassium 3.7 mEq/L (3.5-5.1)
[2023-03-27 13:46] LABS: Protime INR 1.14
[2023-03-29] MEDS: NA CHLORIDE 0.9% 1,000 ML ONE ×2 (09:30→12:00)
[2023-03-29] MEDS ORDERED: LIDOCAINE 1% MPF 5 ML VIAL ONE (09:33)
[2023-03-29] MEDS ORDERED: EPINEPHRINE 1 MG/ML VIAL ONE ×2 (09:33→10:34)
[2023-03-29] MEDS ORDERED: dexAMETHasone 4 MG/ML VIAL ONE (09:34)
[2023-03-29] MEDS ORDERED: FENTANYL CITR 100 MCG/2 ML ONE ×2 (09:51→11:00)
[2023-03-29] MEDS ORDERED: MIDAZOLAM HCL 2 MG/2 ML INJ ONE ×2 (09:51→11:05)
[2023-03-29] MEDS ORDERED: ONDANSETRON 4 MG/2 ML VIAL ONE (11:00)
[2023-03-29] MEDS ORDERED: LIDOCAINE 2% MPF 5 ML VIAL ONE (11:00)
[2023-03-29] MEDS ORDERED: GLYCOPYRROLATE 0.2 MG/ML SYR ONE (11:00)
[2023-03-29] MEDS ORDERED: NEOSTIGMINE 1 MG/ML -10 ML VIAL ONE (11:00)
[2023-03-29] MEDS ORDERED: propofoL 200 MG/20 ML VIAL IV ONE (11:00)
[2023-03-29] MEDS ORDERED: ROCURONIUM 50 MG/5 ML VIAL IV ONE (11:00)
[2023-03-29] MEDS ORDERED: EPHEDRINE SULF 50 MG/ML VIAL ONE (11:45)
--- NOTE | 2023-03-29 13:19 | P.BOP ---
Preoperative diagnosis: right shoulder rotator cuff tear, biceps tendinitis, impingement syndrome Postoperative diagnosis: same, SLAP tear Primary procedure: right shoulder arthroscopic rotator cuff repair Secondary procedure: right shoulder arthroscopic biceps tenotomy with SLAP debridement Other procedure(s): right shoulder arthroscopic subacromial decompression Estimated blood loss: 5 cc Specimen: none Findings: see dictation Anesthesia: General Complications: None Implants: 1 - 5.5 mm Arthrex corkscrew, 1- 4.75 mm Arthrex swivelock Fluids & blood products: per anesthesia record Transferred to: Recovery Room Condition: Good
--- NOTE | 2023-03-29 14:06 | RAD REPORT ---
EXAM DESCRIPTION: RAD - Shoulder 1 View - 03/29/2023 1:57 pm CLINICAL HISTORY: shoulder surgery FINDINGS: Postsurgical changes involve shoulder. No fracture is noted. Humeral head appears to lie inferior medial to the glenohumeral joint. Most likely this is secondary to positioning rather than dislocation. This can be monitored on subsequent exam
[2023-03-29 14:11] VITALS: O2SAT 98
[2023-03-29 14:35] VITALS: BP 126/63; TEMP 97.5
--- NOTE | 2023-03-31 10:21 | P.OP ---
Preoperative diagnosis: Right shoulder rotator cuff tear, biceps tendinitis, impingement syndrome Postoperative diagnosis: same, right shoulder SLAP tear Primary procedure: right shoulder arthroscopic rotator cuff repair Secondary procedure: right shoulder arthroscopic biceps tenotomy with SLAP debridement Other procedure(s): right shoulder arthroscopic subacromial decompression Anesthesia: General Estimated blood loss: 5 cc Specimen: None Findings: see dictation Operative Technique: Indication For Procedure: The patient is a 72-year-old female who presented to my clinic with signs, symptoms, and MRI findings consistent with a right shoulder full-thickness rotator cuff tear. I discussed with the patient risks and benefits associated with operative and nonoperative treatment. She expressed understanding and elected to proceed with operative treatment. Description Of Procedure: After informed consent was obtained, the patient was identified in the preoperative holding area. The right upper extremity was marked. The patient then was brought to the PACU where she underwent a right- sided interscalene block performed by Anesthesia. The patient was brought back to the operating room, transferred to the operative table in supine fashion, placed under general endotracheal anesthesia. She was then placed in a beach chair position with his extremities well padded. The right upper extremity was then prepped and draped in usual sterile fashion. A time-out was initiated. The correct patient and procedure were performed and identified. The patient did receive preoperative prophylactic antibiotics. Via the posterior portal position, a spinal needle was introduced in the glenohumeral joint and the shoulder was injected with 30 cc of normal saline to distend the capsule. A stab incision was made posteriorly and a posterior portal was created. Arthroscope was brought in via the posterior portal position and diagnostic arthroscopy was performed. Under direct visualization, an anterior portal and cannula were created. The patient was noted to have a SLAP tear, which was debrided using the arthroscopic shaver and a biceps tenotomy was performed with a meniscal biter. There was some fraying and tenosynovitis of the bicipital tendon both intra-articular and extra-articular. Subscapularis was found to be stable and intact to probe. There were no loose bodies within the axillary pouch. The patient was noted to have a retracted full-thickness tear of the supraspinatus. A lateral portal was created and an arthroscopic shaver was then used to debride the greater tuberosity to create a bleeding bony bed . The undersurface of the rotator cuff tear was also debrided using the arthroscopic shaver to remove any unhealthy tissue as well as remove any scar tissue and adhesions to mobilize tear. A grasper was used to reduce the tear onto the greater tuberosity with minimal tension. A lateral stab incision was made just lateral to the acromion. A punch was then placed, was then used to place a 5.5 mm double loaded Arthrex corkscrew. The patient was noted to have poor bone quality however the anchor was stable when tension was placed. Sutures were then passed through the rotator cuff tear in anterior-posterior fashion, tied in a horizontal mattress fashion. The suture lines were then brought together and one lateral Arthrex SwiveLock anchor was placed to increase surface area of the reduction onto the greater tuberosity of the rotator cuff tendon. The remaining suture limbs were then cut. There was some significant fraying of a coracoacromial ligament as well as some undersurface spurring of the acromion and acromioplasty was performed using a radiofrequency ablator and an arthroscopic bur. Arthroscopic instruments were then removed without complication. Wounds were then irrigated thoroughly with normal saline. Subcutaneous tissue was approximated using a 2-0 Vicryl. Portals were approximated using a 3-0 Monocryl. Sterile dressings were applied. Shoulder immobilizer was placed. The patient was awakened and transferred to PACU in stable condition. Postoperative Plan: The patient will be nonweightbearing in a shoulder immobilizer for 6 weeks. We will follow the large rotator cuff repair protocol at 6 weeks postoperatively. Complications: None Implants: 1- 5.5 mm Arthrex corkscrew, 1- 4.75 mm Arthrex swivelock Fluids & blood products: Per anesthesia record Transferred to: Recovery Room Condition: Good
== END 2023-03-29 15:04 | disposition home or self-care (01) ==
LOC: OR 08:52
PROVIDERS: ATTEND Orthopaedic Surgery Sports Medicine
PROC: 0RQJ4ZZ Repair Right Shoulder Joint, Percutaneous Endoscopic Approach (ICD-10-PCS; 2023-03-29)
PROC: 0RNJ4ZZ Release Right Shoulder Joint, Percutaneous Endoscopic Approach (ICD-10-PCS; principal; 2023-03-29 11:00)
DX: M75.101 Unspecified rotator cuff tear or rupture of right shoulder, not specified as traumatic (principal); M25.811 Other specified joint disorders, right shoulder; M75.21 Bicipital tendinitis, right shoulder; M25.511 Pain in right shoulder
CPT/HCPCS: 93005; 85025; 80048; 36415; 85610; 85730; 71046; 73020; 29827; 29826; 29807; J2704; J1100; J2710; J2001 ×2; J2250 ×2; J3010 ×2; J0171 ×2; J2405; J7030